=== PATIENT | male | born 1930 | race Caucasian/White ===

== ENCOUNTER → 2017-06-04 | Outpatient (CLI) | payer BC ==
[2016-04-16 17:31] VITALS: BP 173/106
[~2017-06-04] MED LIST: ACET-422 PO; ASPI325T8 PO; CETI10TA22 PO; GABA-586 PO; LISI-334 PO; MULT-246 PO; NIAC500T9 PO; OMEG1CAP43 PO; OMEP40CA5 PO; TRIA1CAP3 PO
--- NOTE | 2017-06-04 14:14 | CARD ---
APPROVED REPORT EXAM: Two-dimensional and M-mode echocardiogram with Doppler and color Doppler. Other Information Quality : Good INDICATION Cardiac Disease: CAD 2D DIMENSIONS RVDd3.2 (2.9-3.5cm)Left Atrium(2D)4.0 (1.6-4.0cm) IVSd1.1 (0.7-1.1cm)Aortic Root(2D)3.4 (2.0-3.7cm) LVDd4.5 (3.9-5.9cm)LVOT Diameter2.3 (1.8-2.4cm) PWd1.0 (0.7-1.1cm)LVDs4.1 (2.5-4.0cm) SV17.3 ml Aortic Valve AoV Peak Duarte.107.6cm/sAoV VTI17.5cm AO Peak GR.4.6mmHgLVOT Peak Duarte.93.1cm/s LVOT VTI 15.92cmAO Mean GR.2mmHg YUE (VMAX)3.05la8XNU (VTI)3.82cm2 Mitral Valve MV E Gmliycwk839.7cm/sMV DECEL USAP126rp MV A Eqaurxpi497.4cm/sMV QTI33bo E/A Ratio0.9MVA (PHT)6.85cm2 TDI E/Lateral E'18.4E/Medial E'26.3 Pulmonary Vein S1 Bvhwwnqh46.1cm/sD2 Agtotusg35.0cm/s LEFT VENTRICLE The left ventricle is normal size. There is normal left ventricular wall thickness. Noderate left dony tricular systolic dysfunction. The Ejection Fraction is 35-40%. Transmitral Doppler flow pattern is G rade I-abnormal relaxation pattern. RIGHT VENTRICLE The right ventricle is normal size. The right ventricular systolic function is normal. ATRIA The left atrium is mildly dilated. The right atrium size is normal. The interatrial septum is intact with no evidence for an atrial septal defect or patent foramen ovale as noted on 2-D or Doppler imagi ng. AORTIC VALVE The aortic valve is calcified but opens well. Doppler and Color Flow revealed trace aortic regurgitat ion. There is no significant aortic valvular stenosis. MITRAL VALVE The mitral valve is calcified but opens well. There is no evidence of mitral valve prolapse. There is no mitral valve stenosis. Doppler and Color-flow revealed mild mitral regurgitation. TRICUSPID VALVE The tricuspid valve is normal in structure and function. Doppler and Color Flow revealed trace tricus pid valve regurgitation. There is no tricuspid valve stenosis. PULMONIC VALVE The pulmonary valve is not well visualized but appears to be functioning normally by Doppler interrog ation. Doppler and Color Flow revealed mild pulmonic valvular regurgitation. There is no pulmonic soumya vular stenosis. GREAT VESSELS The aortic root is normal in size. The ascending aorta is normal in size. The IVC was not visualized. PERICARDIAL EFFUSION There is no evidence of significant pericardial effusion. Critical Notification Critical Value: No <Conclusion> Noderate left ventricular systolic dysfunction. The Ejection Fraction is 35-40%. The left atrium is mildly dilated. Tace aortic regurgitation. Mild mitral regurgitation. Trace tricuspid valve regurgitation. There is no evidence of significant pericardial effusion.
== END | disposition home or self-care (01) ==
LOC: ECHO 10:19
PROVIDERS: ATTEND Internal Medicine Cardiovascular Disease
DX: I08.3 Combined rheumatic disorders of mitral, aortic and tricuspid valves (principal); I25.10 Atherosclerotic heart disease of native coronary artery without angina pectoris
CPT/HCPCS: 93306

== ENCOUNTER 2017-09-26 13:49 | Emergency (ER) | payer BC ==
[2017-09-26 14:59] LABS: ADD MAN DIFF? NO
[2017-09-26 15:04] LABS: BASO % 1 % (0-3); EOS % 5 % (0-3); HEMATOCRIT 32.9 % (39.0-53.0); HEMOGLOBIN 11.3 g/dL (13.0-17.5); LYMPH # 0.7 x10^3/uL (1.0-4.8); LYMPH % 15 % (24-48); MEAN CORPUSCULAR HEMOGLOBIN 34 pg (25-35); MEAN CORPUSCULAR HGB CONC 34 g/dL (31-37); MEAN CORPUSCULAR VOLUME 98 fL (79-100); MONO % 9 % (0-9); NEUT % 71 % (31-73); PLATELET COUNT 187 x10^3/uL (140-400); RED BLOOD COUNT 3.37 x10^6/uL (4.30-5.70)
[2017-09-26 15:13] LABS: ANION GAP 8 (6-14); BLOOD UREA NITROGEN 17 mg/dL (8-26); BUN/CREATININE RATIO 24 (6-20); CALCIUM 8.9 mg/dL (8.5-10.1); CARBON DIOXIDE 28 mmol/L (21-32); CHLORIDE 100 mmol/L (98-107); CREATININE 0.7 mg/dL (0.7-1.3); GFR 107.2; GLUCOSE 108 mg/dL (70-99); POTASSIUM 4.1 mmol/L (3.5-5.1); SODIUM 136 mmol/L (136-145)
[2017-09-26 15:18] LABS: ALBUMIN/GLOBULIN RATIO 0.9 (1.0-1.7); ALK PHOS 128 U/L (46-116); ALT (SGPT) 13 U/L (16-63); AST (SGOT) 16 U/L (15-37); INR 1.1 (0.8-1.1); PARTIAL THROMBOPLASTIN TIME 35 SEC (24-38); PROTHROMBIN TIME PATIENT 13.6 SEC (11.7-14.0); TOTAL BILIRUBIN 0.3 mg/dL (0.2-1.0); TOTAL PROTEIN 6.5 g/dL (6.4-8.2)
[2017-09-26 15:25] LABS: NT-PRO BNP 409 pg/mL (0-449)
[2017-09-26] MEDS: HYDROcodone/APAP 5/325MG 1 TAB TABLET PO (17:53)
== END 2017-09-26 18:11 | disposition home or self-care (01) ==
LOC: ER 13:49
DX: R60.1 Generalized edema (principal); K21.9 Gastro-esophageal reflux disease without esophagitis; I10 Essential (primary) hypertension; I25.10 Atherosclerotic heart disease of native coronary artery without angina pectoris; I25.2 Old myocardial infarction; Z98.890 Other specified postprocedural states; Z95.1 Presence of aortocoronary bypass graft; Z90.49 Acquired absence of other specified parts of digestive tract; Z88.0 Allergy status to penicillin
CPT/HCPCS: 36415; 73552; 80053; 83880; 85025; 85610; 85730; 93971; 99285-25

== ENCOUNTER → 2017-10-21 | Outpatient (CLI) | payer BC ==
[2017-10-21 10:01] LABS: ADD MAN DIFF? NO
[2017-10-21 10:09] LABS: BASO % 0 % (0-3); EOS # 0.2 x10^3/uL (0.0-0.7); EOS % 6 % (0-3); HEMATOCRIT 34.1 % (39.0-53.0); HEMOGLOBIN 11.6 g/dL (13.0-17.5); LYMPH # 0.8 x10^3/uL (1.0-4.8); LYMPH % 19 % (24-48); MEAN CORPUSCULAR HEMOGLOBIN 34 pg (25-35); MEAN CORPUSCULAR HGB CONC 34 g/dL (31-37); MEAN CORPUSCULAR VOLUME 98 fL (79-100); MONO # 0.4 x10^3/uL (0.0-1.1); MONO % 9 % (0-9); NEUT # 2.8 x10^3uL (1.8-7.7); NEUT % 66 % (31-73); PLATELET COUNT 188 x10^3/uL (140-400); RED BLOOD COUNT 3.47 x10^6/uL (4.30-5.70); WHITE BLOOD COUNT 4.2 x10^3/uL (4.0-11.0)
[2017-10-21 10:21] LABS: PARTIAL THROMBOPLASTIN TIME 33 SEC (24-38)
[2017-10-21 10:22] LABS: ALBUMIN 3.2 g/dL (3.4-5.0); ANION GAP 8 (6-14); BLOOD UREA NITROGEN 29 mg/dL (8-26); CALCIUM 8.9 mg/dL (8.5-10.1); CARBON DIOXIDE 30 mmol/L (21-32); CHLORIDE 98 mmol/L (98-107); CREATININE 0.8 mg/dL (0.7-1.3); GFR 91.9; GLUCOSE 95 mg/dL (70-99); POTASSIUM 4.7 mmol/L (3.5-5.1); SODIUM 136 mmol/L (136-145)
[2017-10-21 11:13] LABS: SEDIMENTATION RATE 46 (0-15)
[2017-10-21 11:25] LABS: BILIRUBIN,URINE NEGATIVE (NEG); CLARITY,URINE CLEAR; COLOR,URINE YELLOW; GLUCOSE,URINE NEGATIVE (NEG); NITRITE,URINE NEGATIVE (NEG); PH,URINE 7.5; PROTEIN,URINE NEGATIVE (NEG-TRACE)
[2017-10-21 11:39] LABS: RBC,URINE 0 /HPF (0-2)
[2017-10-21 11:40] LABS: AMORPHOUS SEDIMENT,UR PRESENT /HPF; BACTERIA,URINE MODERATE /HPF (0-FEW); SQUAMOUS EPITHELIAL CELL,UR FEW /LPF
[2017-10-21 17:13] LABS: MRSA BY PCR Negative (Negative)
== END | disposition home or self-care (01) ==
LOC: SURGPAT 14:16
DX: Z01.818 Encounter for other preprocedural examination (principal); I10 Essential (primary) hypertension; I70.0 Atherosclerosis of aorta
CPT/HCPCS: 36415; 71046; 80048; 81001; 82040; 85025; 85610; 85651; 85730; 87086; 87641

== ENCOUNTER 2017-11-04 05:49 | Inpatient (IN) | payer BC ==
[2017-11-04] MEDS: IV RINGERS,LACTATED 1000ML 1,000 ML IV (06:56)
[2017-11-04] MEDS ORDERED: fentaNYL PF VIAL 100 MCG/2 ML VIAL IV ×4 (07:00→07:15)
[2017-11-04] MEDS ORDERED: LIDOCAINE 1% PF 2 ML VIAL. ID (07:00)
[2017-11-04] MEDS ORDERED: MORPHINE SULFATE 2 MG/ML DISP.SYRIN. IV ×2 (07:00→07:15)
[2017-11-04] MEDS ORDERED: PROCHLORPERAZINE 10 MG/2 ML VIAL. IV ×2 (07:00→07:15)
[2017-11-04] MEDS ORDERED: HYDROmorphone 2 MG/ML VIAL IV (07:00)
[2017-11-04] MEDS ORDERED: ONDANSETRON PF 4 MG/2 ML VIAL. IV (07:00)
[2017-11-04] MEDS ORDERED: ONDANSETRON PF 4 MG/2 ML VIAL. (07:01)
[2017-11-04] MEDS ORDERED: FAMOTIDINE 20 MG/2 ML VIAL (07:01)
[2017-11-04] MEDS ORDERED: LIDOCAINE 1% PF 5 ML VIAL. (07:01)
[2017-11-04] MEDS ORDERED: PROPOFOL 20 ML IV (07:01)
[2017-11-04] MEDS ORDERED: DEXAMETHASONE SOD PHOS 20 MG/5 ML VIAL. (07:01)
[2017-11-04] MEDS ORDERED: ACETAMINOPHEN 500 MG TABLET PO (07:02)
[2017-11-04] MEDS ORDERED: MELOXICAM 7.5 MG TABLET PO (07:03)
[2017-11-04] MEDS ORDERED: ROCURONIUM 50 MG/5 ML VIAL. (07:04)
[2017-11-04] MEDS ORDERED: fentaNYL PF VIAL 100 MCG/2 ML VIAL (07:04)
[2017-11-04] MEDS: VANCOMYCIN 1GM IVPB FOR OMNI 250 ML IV (07:05)
[2017-11-04 07:15] LABS: PARTIAL THROMBOPLASTIN TIME 32 SEC (24-38)
[2017-11-04] MEDS ORDERED: oxyCODONE/APAP 5/325 1 TAB TABLET PO (07:15)
[2017-11-04] MEDS ORDERED: HYDROcodone/APAP 10/325 1 TAB TABLET PO (07:15)
[2017-11-04] MEDS ORDERED: MORPHINE SULFATE 4 MG/ML DISP.SYRIN. IV ×2 (07:15)
[2017-11-04] MEDS ORDERED: MORPHINE SULFATE 10 MG/ML VIAL. IV (07:15)
[2017-11-04] MEDS ORDERED: 0.9 % SODIUM CHLORIDE 10 ML DISP.SYRIN. IV (07:15)
[2017-11-04] MEDS ORDERED: diphenhydrAMINE 50 MG/ML VIAL IV (07:15)
[2017-11-04] MEDS ORDERED: DEXTROSE 50% 25 GM / 50ML DISP.SYRIN. IV (07:15)
[2017-11-04] MEDS ORDERED: PROCHLORPERAZINE 5 MG TABLET. PO (07:15)
[2017-11-04] MEDS ORDERED: METOCLOPRAMIDE HCL 10 MG/2 ML VIAL. IV (07:15)
[2017-11-04] MEDS ORDERED: traMADol 50 MG TABLET PO (07:15)
[2017-11-04] MEDS ORDERED: CALCIUM CARBONATE 500 MG TAB.CHEW PO (07:15)
[2017-11-04] MEDS ORDERED: ACETAMINOPHEN 325 MG TABLET. PO (07:15)
[2017-11-04] MEDS ORDERED: oxyCODONE/APAP 7.5/325 1 TAB TABLET PO (07:15)
[2017-11-04] MEDS: MELOXICAM 7.5 MG TABLET PO (07:35)
[2017-11-04] MEDS: ACETAMINOPHEN 500 MG TABLET PO (07:35)
[2017-11-04] MEDS ORDERED: PHENYLEPHRINE in 0.9% NACL PF 1 MG/10 ML SYRINGE. IV (07:53)
[2017-11-04] MEDS: TRANEXAMIC ACID 1,000 MG in IV NORMAL SALINE 50ML 50 ML INJ ×2 (07:54→10:28)
[2017-11-04] MEDS: MORPHINE SULFATE 5 MG, KETOROLAC 30 MG, ROPIVacaine 0.5% PF 60 ML, EPINEPHrine 0.5 MG i... INT ART (08:01)
[2017-11-04] MEDS ORDERED: ePHEDrine PF IN SALINE 50 MG/5 ML DISP.SYRIN IV (08:14)
[2017-11-04] MEDS ORDERED: ROCURONIUM 100 MG/10 ML VIAL. (08:49)
[2017-11-04] MEDS ORDERED: GLYCOPYRROLATE 1 MG/5 ML VIAL. (08:50)
[2017-11-04] MEDS ORDERED: NEOSTIGMINE METHYLSULFATE 5 MG/5 ML SYRINGE. (08:50)
[2017-11-04] MEDS ORDERED: 0.9 % SODIUM CHLORIDE 50 ML VIAL. IJ (08:58)
[2017-11-04] MEDS ORDERED: VASOPRESSIN 20 UNIT/ML VIAL. (08:58)
[2017-11-04] MEDS ORDERED: ALBUMIN HUMAN 5% 500 ML IV (09:22)
[2017-11-04 09:59] LABS: HEMOGLOBIN 9.2 g/dL (13.0-17.5)
[2017-11-04 09:59] LABS: HEMATOCRIT 27.3 % (39.0-53.0)
[2017-11-04] MEDS ORDERED: SEVOFLURANE > 120 MINUTES. IH (10:41)
[2017-11-04] MEDS: IV DEXTROSE 5 %-0.45 % NACL 1,000 ML IV ×2 (12:30→22:00)
[2017-11-04] MEDS: WARFARIN 7.5 MG TABLET. PO (16:17)
[2017-11-04] MEDS: VANCOMYCIN 1 GM in IV DEXTROSE 5% 250 ML IV (17:55)
[2017-11-04 18:05] LABS: HEMATOCRIT 24.5 % (39.0-53.0); HEMOGLOBIN 8.5 g/dL (13.0-17.5); MEAN CORPUSCULAR HEMOGLOBIN 33 pg (25-35); MEAN CORPUSCULAR HGB CONC 35 g/dL (31-37); MEAN CORPUSCULAR VOLUME 96 fL (79-100); PLATELET COUNT 129 x10^3/uL (140-400); RED BLOOD COUNT 2.55 x10^6/uL (4.30-5.70); RED CELL DISTRIBUTION WIDTH 14.1 % (11.5-14.5); WHITE BLOOD COUNT 6.9 x10^3/uL (4.0-11.0)
[2017-11-04] MEDS: GABAPENTIN 300 MG CAPSULE. PO (20:56)
[2017-11-04] MEDS: CELECOXIB 200 MG CAPSULE. PO (20:56)
[2017-11-04] MEDS: LISINOPRIL 20 MG TABLET PO (20:58)
[2017-11-04] MEDS: ZOLPIDEM 5 MG TABLET. PO (22:37)
[2017-11-04] MEDS: HYDROcodone/APAP 7.5/325MG 1 TAB TABLET PO (22:37)
[2017-11-05 05:01] LABS: HEMATOCRIT 24.1 % (39.0-53.0); HEMOGLOBIN 8.4 g/dL (13.0-17.5); MEAN CORPUSCULAR HGB CONC 35 g/dL (31-37)
[2017-11-05 05:09] LABS: INR 1.2 (0.8-1.1); PROTHROMBIN TIME PATIENT 14.7 SEC (11.7-14.0)
[2017-11-05] MEDS ORDERED: MAGNESIUM HYDROXIDE 2,400 MG/30 ML ORAL.SUSP. PO (06:00)
[2017-11-05] MEDS: PANTOPRAZOLE 40 MG TABLET.DR. PO (06:29)
[2017-11-05] MEDS: VANCOMYCIN 1 GM in IV DEXTROSE 5% 250 ML IV (06:30)
[2017-11-05] MEDS: HYDROcodone/APAP 7.5/325MG 1 TAB TABLET PO ×3 (06:31→20:43)
[2017-11-05] MEDS: CETIRIZINE HCL 10 MG TABLET. PO (07:40)
[2017-11-05] MEDS: MULTIVITAMIN with MINERAL TABLET. PO (07:40)
[2017-11-05] MEDS: SENNOSIDES/DOCUSATE 8.6/50MG TABLET. PO (07:40)
[2017-11-05] MEDS: FERROUS SULFATE 325 MG TABLET. PO ×2 (07:40→16:17)
[2017-11-05] MEDS: CITALOPRAM 10 MG TABLET. PO (07:40)
[2017-11-05] MEDS: POLYETHYLENE GLYCOL 3350 17 GM PACKET. PO (07:40)
[2017-11-05] MEDS: CELECOXIB 200 MG CAPSULE. PO ×2 (07:40→20:41)
[2017-11-05] MEDS: TRIAMTERENE/HCTZ 37.5/25MG TABLET. PO (07:43)
[2017-11-05] MEDS ORDERED: BISACODYL 10 MG SUPP.RECT. PR (16:00)
[2017-11-05] MEDS: WARFARIN 5 MG TABLET. PO (16:17)
[2017-11-05] MEDS: GABAPENTIN 300 MG CAPSULE. PO (20:41)
[2017-11-05] MEDS: LISINOPRIL 20 MG TABLET PO (20:43)
[2017-11-06] MEDS: HYDROcodone/APAP 7.5/325MG 1 TAB TABLET PO ×2 (03:55→08:39)
[2017-11-06 05:42] LABS: HEMATOCRIT 22.5 % (39.0-53.0); HEMOGLOBIN 7.7 g/dL (13.0-17.5); MEAN CORPUSCULAR HGB CONC 34 g/dL (31-37)
[2017-11-06 06:01] LABS: INR 1.5 (0.8-1.1)
[2017-11-06] MEDS: PANTOPRAZOLE 40 MG TABLET.DR. PO (06:23)
[2017-11-06] MEDS: MULTIVITAMIN with MINERAL TABLET. PO (08:31)
[2017-11-06] MEDS: CITALOPRAM 10 MG TABLET. PO (08:31)
[2017-11-06] MEDS: CELECOXIB 200 MG CAPSULE. PO ×2 (08:31→21:35)
[2017-11-06] MEDS: SENNOSIDES/DOCUSATE 8.6/50MG TABLET. PO (08:31)
[2017-11-06] MEDS: FERROUS SULFATE 325 MG TABLET. PO ×2 (08:31→16:54)
[2017-11-06] MEDS: CETIRIZINE HCL 10 MG TABLET. PO (08:31)
[2017-11-06] MEDS: POLYETHYLENE GLYCOL 3350 17 GM PACKET. PO (08:32)
[2017-11-06] MEDS: TRIAMTERENE/HCTZ 37.5/25MG TABLET. PO (08:34)
[2017-11-06] MEDS: traMADol 50 MG TABLET PO ×2 (13:14→16:54)
[2017-11-06 15:13] LABS: IMMEDIATE SPIN CROSSMATCH 1 3
[2017-11-06] MEDS: WARFARIN 3 MG TABLET. PO (16:54)
[2017-11-06] MEDS: LISINOPRIL 20 MG TABLET PO (21:00)
[2017-11-06] MEDS: GABAPENTIN 300 MG CAPSULE. PO (21:35)
[2017-11-06] MEDS: ZOLPIDEM 5 MG TABLET. PO (22:15)
[2017-11-07 05:32] LABS: HEMOGLOBIN 8.4 g/dL (13.0-17.5); MEAN CORPUSCULAR HGB CONC 34 g/dL (31-37)
[2017-11-07 05:39] LABS: INR 1.4 (0.8-1.1); PROTHROMBIN TIME PATIENT 16.4 SEC (11.7-14.0)
[2017-11-07] MEDS: PANTOPRAZOLE 40 MG TABLET.DR. PO (07:01)
[2017-11-07] MEDS: POLYETHYLENE GLYCOL 3350 17 GM PACKET. PO (08:10)
[2017-11-07] MEDS: MULTIVITAMIN with MINERAL TABLET. PO (08:11)
[2017-11-07] MEDS: CITALOPRAM 10 MG TABLET. PO (08:12)
[2017-11-07] MEDS: CELECOXIB 200 MG CAPSULE. PO (08:12)
[2017-11-07] MEDS: SENNOSIDES/DOCUSATE 8.6/50MG TABLET. PO (08:12)
[2017-11-07] MEDS: FERROUS SULFATE 325 MG TABLET. PO (08:12)
[2017-11-07] MEDS: CETIRIZINE HCL 10 MG TABLET. PO (08:13)
[2017-11-07] MEDS: TRIAMTERENE/HCTZ 37.5/25MG TABLET. PO (08:16)
[2017-11-07] MEDS: HYDROcodone/APAP 7.5/325MG 1 TAB TABLET PO ×2 (09:27→14:44)
[2017-11-07] MEDS: WARFARIN 4 MG TABLET. PO (12:51)
== END 2017-11-07 16:00 | DRG 470 ==
LOC: OPSVCIP 05:49 → 4 SOUTHWST 12:18
PROVIDERS: Neurological Surgery
PROC: 0SRB0JZ Replacement of Left Hip Joint with Synthetic Substitute, Open Approach (ICD-10-PCS; principal; 2017-11-04 07:30)
PROC: 30233N1 Transfusion of Nonautologous Red Blood Cells into Peripheral Vein, Percutaneous Approach (ICD-10-PCS; 2017-11-04 07:30)
DX: M16.12 Unilateral primary osteoarthritis, left hip (principal)
CPT/HCPCS: 36415; 72170; 85014; 85018; 85027; 85610; 85730; 86850; 86900; 86901; 86920; 88304; 88311; 97116-GP; 97150-GO; 97150-GP; 97162-GP; 97166-GO; 97530-GP; 97535-GO; J0171; J1100; J1885; J2270; J2370; J2405; J2704; J2710; J2795; J3010; J3370; J3490; J7030; J7120; P9016; P9045; S0028

== ENCOUNTER → 2018-07-31 | Outpatient (CLI) | payer BC ==
[2017-11-07 14:45] VITALS: BP 108/57
[~2018-07-31] MED LIST changes: +CEPH-263 PO; +ESCITALOPRAM OXA5 MG PO; +HYDR-971 PO; +LACT1CAP19 PO; +POLY17PO3 PO; +WARF4TAB64 PO; +depression med
--- NOTE | 2018-07-31 13:00 | CARD ---
MR#: [id number] Date of Study: 07/31/2018 Ordering Physician: ROME HASKINS, Referring Physician: ROME HASKINS Tech: Nannette Quiñonez RDCS APPROVED REPORT EXAM: Two-dimensional and M-mode echocardiogram with Doppler and color Doppler. Other Information Quality : Good Technically limited study due to body habitus. INDICATION Cardiac Disease: CAD 2D DIMENSIONS RVDd2.4 (2.9-3.5cm)Left Atrium(2D)3.9 (1.6-4.0cm) IVSd1.1 (0.7-1.1cm)Aortic Root(2D)3.4 (2.0-3.7cm) LVDd5.6 (3.9-5.9cm)LVOT Diameter2.2 (1.8-2.4cm) PWd1.1 (0.7-1.1cm)LVDs4.5 (2.5-4.0cm) FS (%) 19.5 %SV61.5 ml LVEF(%)39.5 (>50%) Aortic Valve AoV Peak Duarte.112.8cm/sAoV VTI19.1cm AO Peak GR.5.1mmHgLVOT Peak Duarte.114.2cm/s AO Mean GR.3mmHgAVA (VMAX)3.83cm2 YUE (VTI)3.90cm2 Mitral Valve MV E Oasbojtp91.0cm/sMV DECEL OEHU927po MV A Mcoarlqo659.1cm/sE/A Ratio0.6 Tricuspid Valve TR P. Fnotqwql211bd/sRAP ABWKYKUF6aaYf TR Peak Gr.08bsEiKRYE75evVk Pulmonary Vein S1 Jekxitfu34.1cm/sD2 Nlwdfqyz77.3cm/s LEFT VENTRICLE The left ventricle is normal size. There is normal left ventricular wall thickness. Left ventricle sy stolic function is mild impaired. EF 45-50% Septal motion consistent with conduction abnormality. The re is mild global hypokinesis of the left ventricle. Transmitral Doppler flow pattern is Grade I-abno rmal relaxation pattern. RIGHT VENTRICLE The right ventricle is normal size. The right ventricular systolic function is normal. ATRIA The left atrium size is normal. The right atrium size is normal. The interatrial septum is intact wit h no evidence for an atrial septal defect or patent foramen ovale as noted on 2-D or Doppler imaging. AORTIC VALVE The aortic valve is calcified but opens well. Doppler and Color Flow revealed no significant aortic r egurgitation. There is no significant aortic valvular stenosis. MITRAL VALVE The mitral valve is calcified but opens well. There is no evidence of mitral valve prolapse. There is no mitral valve stenosis. Doppler and Color-flow revealed mild mitral regurgitation. TRICUSPID VALVE The tricuspid valve is normal in structure and function. Doppler and Color Flow revealed trace tricus pid regurgitation. The PA pressure was estimated at 35 mmHg. There is no tricuspid valve stenosis. PULMONIC VALVE The pulmonic valve is not well visualized. Doppler and Color Flow revealed mild pulmonic valvular reg urgitation. There is no pulmonic valvular stenosis. GREAT VESSELS The aortic root is normal in size. The ascending aorta is mildly dilated at 3.5 cm. The IVC was not v isualized. PERICARDIAL EFFUSION There is no evidence of significant pericardial effusion. Critical Notification Critical Value: No <Conclusion> Left ventricle systolic function is mild impaired. EF 45-50% Septal motion consistent with conduction abnormality. There is mild global hypokinesis of the left ve ntricle. Doppler and Color Flow revealed trace tricuspid regurgitation. The PA pressure was estimated at 35 mm Hg. The ascending aorta is mildly dilated at 3.5 cm. Signed by : Donald Khanna, Electronically Approved : 07/31/2018 12:59:39
== END | disposition home or self-care (01) ==
LOC: ECHO 10:46
PROVIDERS: ATTEND Internal Medicine Cardiovascular Disease
DX: I25.10 Atherosclerotic heart disease of native coronary artery without angina pectoris (principal); Z88.0 Allergy status to penicillin; Z79.899 Other long term (current) drug therapy
CPT/HCPCS: 93306

== ENCOUNTER → 2018-08-20 | Outpatient (CLI) | payer BC ==
[2017-11-07 14:45] VITALS: BP 108/57
[~2018-08-20] MED LIST changes: +REGADENOSON 0.4 MG/5 ML DISP.SYRIN. IV ONE
--- NOTE | 2018-08-20 13:10 | RAD ---
MR#: [id number] Date of Study: 08/20/2018 Ordering Physician: ROME CORRIGAN Referring Physician: DREAD STERN Tech: RT Rafiq (R) (N) APPROVED REPORT Test Type: Pharmacological Stress Nurse/Tech: Beata Lepe RN Test Indications: CAD Cardiac History: CABG, CHF Medications: See Electronic Medical Record Medical History: See Electronic Medical Record Resting ECG: SR, BBB Resting Heart Rate: 70 bpm Resting Blood Pressure: 153/80mmHg Pretest Chest Pain: None Nurse/Tech Notes Lungs CTA, S1S2 Consent: The procedure was explained to the patient in lay terms. Informed consent was witnessed. Fer eout was entered into [employer]. History and Stress Test performed by Beata Lepe RN Pharm. Details Pharmacologic stress testing was performed using 0.4mg per 5ml of regadenoson given intravenously ove r 7-10 seconds. Stress Symptoms No chest pain or symptoms. POST EXERCISE Reason for Termination: Infusion complete Max HR: 91 bpm Max Blood Pressure: 154/74mmHg Blood Pressure response to exercise: Normal blood pressure response during stress. Heart Rate response to exercise: normal response Chest Pain: No. Arrhythmia: No. ST Change: No. INTERPRETATION Stress EKG Conclusion: Baseline EKG showed sinus rhythm with LBBB. Non diagnostic changes at peak str ess. No arrhythmias. Imaging Protocol IMAGE PROTOCOL: Rest Tc-99m/stress Tc-99m 1 day Rest: Stress: Viability: Radiopharm.Tc99m OclacndkmFg04p Sestamibi Qsgb68iNz 33mCi Duration 13min. 13min. Img Date 08/20/2018 08/20/2018 Inj-Img Bizc30tjc. 60min. Rest Admin Site:IV - Left AntecubitalAdministrator:RT Rafiq (R)(N) Stress Admin Site: IV - Left AntecubitalAdministrator: RT Rafiq (R)(N) STRESS DATA End Diast. Vol.174.0mlLVEDV index BSA84.0ml End Syst. Vol.91.0mlLVESV index BSA44.0ml Myocardial Qjea450.0gEject. Cnlhmqri55.0% Stress Scores Regional WT0.00Summed WT23.00 Regional WM0.00Summed WM24.00 LV Perfusion Scintigraphic images did not show any significant fixed or reversible defects. Wall Motion Abnormal septal wall motion with ejection fraction calculated at 48%. LV Perf. Quant 17 Seg. SSS5.00 17 Seg. SRS15.00 17 Seg. SDS0.00 Stress Defect Extent (% LAD)1.30Rest Defect Extent (% LAD)43.10Rev. Defect Extent (% LAD)0.00 Stress Defect Extent (% LCX) 12.50Rest Defect Extent (% LCX)17.50Rev. Defect Extent (% LCX)0.00 Stress Defect Extent (% RCA)2.20Rest Defect Extent (% RCA)37.80Rev. Defect Extent (% RCA)0.00 Stress Defect Extent (% EJNNIFER)7.40Rest Defect Extent (% JENNIFER)36.70Rev. Defect Extent (% JENNIFER)0.00 Conclusion 1. Regadenoson cardioisotope stress test did not show any evidence of ischemia or infarct. 2. Abnormal septal wall motion with ejection fraction calculated at 48%. 3. Low risk for cardiac events. Signed by : Rome Corrigan, Electronically Approved : 08/20/2018 13:09:37
== END | disposition home or self-care (01) ==
LOC: NM 08:43
PROVIDERS: ATTEND Internal Medicine Cardiovascular Disease
DX: I25.10 Atherosclerotic heart disease of native coronary artery without angina pectoris (principal); Z95.1 Presence of aortocoronary bypass graft
CPT/HCPCS: 78452; 93017; 96374; 96375; 96376; A9500; J2785

== ENCOUNTER → 2019-08-13 | Outpatient (CLI) | payer BC ==
[2017-11-07 14:45] VITALS: BP 108/57
[~2019-08-13] MED LIST changes: -GABA-586 PO; +GABA300C18 PO; +HYDR-3164 PO; -HYDR-971 PO; +OMEP40CA45 PO; -OMEP40CA5 PO; +POLY17PO28 PO; -POLY17PO3 PO; -REGADENOSON 0.4 MG/5 ML DISP.SYRIN. IV ONE
--- NOTE | 2019-08-13 10:02 | CARD ---
MR#: [id number] Date of Study: 08/13/2019 Ordering Physician: ROME CORRIGAN, Referring Physician: Gold STERN: Judith Griffiths APPROVED REPORT EXAM: Two-dimensional and M-mode echocardiogram with Doppler and color Doppler. Other Information Quality : AverageHR: 68bpm INDICATION CAD 2D DIMENSIONS RVDd2.5 (2.9-3.5cm)Left Atrium(2D)2.9 (1.6-4.0cm) IVSd1.6 (0.7-1.1cm)Aortic Root(2D)2.7 (2.0-3.7cm) LVDd4.8 (3.9-5.9cm)LVOT Diameter2.3 (1.8-2.4cm) PWd1.2 (0.7-1.1cm)LVDs3.3 (2.5-4.0cm) FS (%) 30.6 %SV61.6 ml LVEF(%)58.0 (>50%) Aortic Valve AoV Peak Duarte.121.5cm/sAoV VTI24.8cm AO Peak GR.5.9mmHgLVOT Peak Duarte.98.6cm/s AO Mean GR.3mmHgAVA (VMAX)3.46cm2 Mitral Valve MV E Otnyrecr95.3cm/sMV E Peak Gr.5mmHg MV DECEL VFCG483ceTH A Jdlouijv790.2cm/s MV E Mean Gr.2mmHgE/A Ratio0.5 Pulmonary Valve PV Peak Duioitys51.4cm/s Tricuspid Valve TR P. Puynhsfn446uo/sRAP YOVAXSVI6brQk TR Peak Gr.10dqIpWWOH24jdIv Pulmonary Vein S1 Emnushfm38.0cm/sD2 Pxnvvjmk67.6cm/s LEFT VENTRICLE The left ventricle is normal size. There is mild concentric left ventricular hypertrophy. The left ve ntricular systolic function is mildly impaired. The Ejection Fraction is 45%. Septal wall motion cons istent with conduction abnormality. Transmitral Doppler flow pattern is Grade I-abnormal relaxation p attern. RIGHT VENTRICLE The right ventricle is normal size. The right ventricular systolic function is normal. ATRIA The left atrium size is normal. The right atrium size is normal. The interatrial septum is intact wit h no evidence for an atrial septal defect or patent foramen ovale as noted on 2-D or Doppler imaging. AORTIC VALVE The aortic valve is calcified but opens well. Doppler and Color Flow revealed no significant aortic r egurgitation. There is no significant aortic valvular stenosis. MITRAL VALVE The mitral valve is thickened but opens well. There is no evidence of mitral valve prolapse. There is no mitral valve stenosis. Doppler and Color-flow revealed mild mitral regurgitation. TRICUSPID VALVE The tricuspid valve is normal in structure and function. Doppler and Color Flow revealed mild tricusp id regurgitation with an estimated PAP of 20 mmHg. There is no tricuspid valve stenosis. PULMONIC VALVE The pulmonary valve is normal in structure and function. Doppler and Color Flow revealed no pulmonic valvular regurgitation. GREAT VESSELS The aortic root is normal in size. The ascending aorta is normal in size. The IVC was not visualized. PERICARDIAL EFFUSION There is no pleural effusion. There is no evidence of significant pericardial effusion. Critical Notification Critical Value: No <Conclusion> The left ventricular systolic function is mildly impaired. The Ejection Fraction is 45%. Septal wall motion consistent with conduction abnormality. Transmitral Doppler flow pattern is Grade I-abnormal relaxation pattern. Mild mitral regurgitation. Mild tricuspid regurgitation with an estimated PAP of 20 mmHg. There is no evidence of significant pericardial effusion. Signed by : Rome Corrigan, Electronically Approved : 08/13/2019 10:02:22
== END | disposition home or self-care (01) ==
LOC: ECHO 08:43
PROVIDERS: ATTEND Internal Medicine Cardiovascular Disease
DX: I08.3 Combined rheumatic disorders of mitral, aortic and tricuspid valves (principal); I11.9 Hypertensive heart disease without heart failure; I25.10 Atherosclerotic heart disease of native coronary artery without angina pectoris
CPT/HCPCS: 93306

== ENCOUNTER 2020-05-29 10:59 | Inpatient (IN) | payer BC ==
[~2020-05-29] VITALS: Ht 167.6 cm; Wt 106.4 kg
[2020-05-29] VITALS (10 sets, daily range): BP systolic 89–141; BP diastolic 57–68
[~2020-05-29 10:59] MED LIST changes: -CETI10TA22 PO; +CETI10TA74 PO
--- NOTE | 2020-05-29 11:12 | PHYS DOC ---
Past Medical History Past Medical History: CAD, GERD, Hypertension, DC Past Surgical History: Appendectomy, Coronary Bypass Surgery, Other Additional Past Surgical Histo: hernia repair Smoking Status: Never Smoker Alcohol Use: None Drug Use: None General Adult EDM: Chief Complaint: MECHANICAL FALL HPI: HPI: Patient is a 89 year old male who missed a step and fell and injured his right hip just prior to arrival patient has severe right hip pain and limited range of motion. Pain is described as a throbbing discomfort that radiates down his leg. Pain is worse with range of motion and palpation. Patient denied hitting his head did not have loss of consciousness. Patient denies any other injuries. Review of Systems: Review of Systems: Constitutional: Denies fever or chills. [] Eyes: Denies change in visual acuity. [] HENT: Denies nasal congestion or sore throat. [] Respiratory: Denies cough or shortness of breath. [] Cardiovascular: Denies chest pain or edema. [] GI: Denies abdominal pain, nausea, vomiting, bloody stools or diarrhea. [] : Denies dysuria. [] Musculoskeletal: Denies back pain but has right hip pain Integument: Denies rash. [] Neurologic: Denies headache, focal weakness or sensory changes. [] Endocrine: Denies polyuria or polydipsia. [] Lymphatic: Denies swollen glands. [] Psychiatric: Denies depression or anxiety. [] Heart Score: Risk Factors: Risk Factors: DM, Current or recent (<one month) smoker, HTN, HLP, family his tory of CAD, obesity. Risk Scores: Score 0 - 3: 2.5% MACE over next 6 weeks - Discharge Home Score 4 - 6: 20.3% MACE over next 6 weeks - Admit for Clinical Observation Score 7 - 10: 72.7% MACE over next 6 weeks - Early Invasive Strategies Current Medications: Current Medications Medications (Trade) Dose Ordered Sig/Ginny Start Time Stop Time Status Last Admin Dose Admin Morphine Sulfate (Morphine Sulfate) 2 mg 1X ONCE 05/29/20 11:30 05/29/20 11:31 Allergies: Allergies: Allergies Coded Allergies Type Severity Reaction Last Updated Verified Penicillins Allergy Intermediate 11/04/17 Yes Physical Exam: PE: Constitutional: Well developed, well nourished, no acute distress, non-toxic appearance. [] HENT: Normocephalic, atraumatic, bilateral external ears normal, no trismus, nose normal. [] Eyes: PERRLA, EOMI, conjunctiva normal, no discharge. [] Neck: Normal range of motion, no tenderness, supple, no stridor. [] Cardiovascular:Heart rate regular rhythm, peripheral pulses intact, cap refill brisk Lungs & Thorax: Bilateral breath sounds clear, no respiratory distress Abdomen: Bowel sounds normal, soft, no tenderness, no masses, no pulsatile masses. [] Skin: Warm, dry, no erythema, no rash. [] Back: No tenderness, no CVA tenderness. [] Extremities: Tenderness to the right hip with external rotation Neurologic: Alert and oriented X 3, normal motor function, normal sensory function, no focal deficits noted. [] Psychologic: Affect normal, judgement normal, mood normal. [] Current Patient Data: Labs: Laboratory Tests Test 05/29/20 11:12 05/29/20 11:35 White Blood Count 5.0 x10^3/uL Red Blood Count 3.88 x10^6/uL Hemoglobin 13.1 g/dL Hematocrit 38.0 % Mean Corpuscular Volume 98 fL Mean Corpuscular Hemoglobin 34 pg Mean Corpuscular Hemoglobin Concent 35 g/dL Red Cell Distribution Width 12.8 % Platelet Count 143 x10^3/uL Neutrophils (%) (Auto) 73 % Lymphocytes (%) (Auto) 17 % Monocytes (%) (Auto) 7 % Eosinophils (%) (Auto) 3 % Basophils (%) (Auto) 0 % Neutrophils # (Auto) 3.7 x10^3/uL Lymphocytes # (Auto) 0.8 x10^3/uL Monocytes # (Auto) 0.4 x10^3/uL Eosinophils # (Auto) 0.2 x10^3/uL Basophils # (Auto) 0.0 x10^3/uL Prothrombin Time 14.3 SEC Prothromb Time International Ratio 1.2 Activated Partial Thromboplast Time 31 SEC Sodium Level 135 mmol/L Potassium Level 3.8 mmol/L Chloride Level 99 mmol/L Carbon Dioxide Level 27 mmol/L Anion Gap 9 Blood Urea Nitrogen 17 mg/dL Creatinine 0.9 mg/dL Estimated GFR (Cockcroft-Gault) 79.6 BUN/Creatinine Ratio 19 Glucose Level 129 mg/dL Calcium Level 8.5 mg/dL Total Bilirubin 0.4 mg/dL Aspartate Amino Transf (AST/SGOT) 15 U/L Alanine Aminotransferase (ALT/SGPT) 18 U/L Alkaline Phosphatase 80 U/L Total Protein 6.4 g/dL Albumin 3.1 g/dL Albumin/Globulin Ratio 0.9 SARS-CoV-2 Antigen (Rapid) Negative Current Medications Medications (Trade) Dose Ordered Sig/Ginny Route PRN Reason Start Time Stop Time Status Last Admin Dose Admin Morphine Sulfate (Morphine Sulfate) 2 mg 1X ONCE IV 05/29/20 11:30 05/29/20 11:31 DC 05/29/20 11:31 Vital Signs: Vital Signs Date Time Temp Pulse Resp B/P (MAP) Pulse Ox O2 Delivery O2 Flow Rate FiO2 05/29/20 10:59 98.3 70 18 140/65 (90) 95 Room Air 98.3 EKG: EKG: [] EKG interpreted by me normal sinus rhythm left axis deviation idioventricular block, nonspecific ST changes, rate of 71 Radiology/Procedures: Radiology/Procedures: [][facility] [address] [place] [address] IMAGING REPORT Signed PATIENT: YANIQUE FOX ACCOUNT: [id number] : 1930 LOCATION: ER AGE: 89 SEX: M EXAM STATUS: PRE ER ORD. PHYSICIAN: MARTIN RAMIRES MD REASON: fall, right hip pain PROCEDURE: HIP RIGHT 2V WITH PELVIS AP view of the pelvis and two-view study right hip Clinical indications: Fall. Right hip pain. FINDINGS: A basicervical right femoral neck fracture is seen. However, in the lateral view there is a fracture line seen extending through the greater trochanter with mild inferior displacement of the greater trochanteric fracture fragment. In addition, a small chip fracture of the upper aspect of the lesser trochanter is seen. Therefore, this is consistent with an intertrochanteric fracture. There is a mild resultant varus deformity. No lytic process is seen. 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 No acute fracture of the pelvic bones is seen. No diastases of the symphysis pubis or either SI joint is seen. No lytic process is evident. IMPRESSION: Impacted intertrochanteric fracture of the proximal right femur. Electronically signed by: Baldo Jorge MD (05/29/2020 11:37 AM) [id number] DICTATED and SIGNED BY: BALDO JORGE MD DATE: 05/29/20 113 [facility] [address] [place] [address] IMAGING REPORT Signed PATIENT: YANIQUE FOX ACCOUNT: [id number] : 1930 LOCATION: ER AGE: 89 SEX: M EXAM STATUS: PRE ER ORD. PHYSICIAN: MARTIN RAMIRES MD REASON: fall, right hip pain PROCEDURE: PORTABLE CHEST 1V EXAM: CHEST ONE VIEW. HISTORY: Fall, pain. COMPARISON: 10/21/2017. FINDINGS: A frontal view of the chest is obtained. There are changes of coronary artery bypass grafting. There are no confluent infiltrates. There is no pneumothorax or pleural effusion. The heart is not enlarged. A chronic large retrocardiac opacity is consistent with a large hiatal hernia. There are atherosclerotic calcifications of the aorta. IMPRESSION: 1. Correlate for a large hiatal hernia. Electronically signed by: Donna Garvey MD (05/29/2020 11:36 AM) [id number] DICTATED and SIGNED BY: LILY GARVEY MD DATE: 05/29/201135 Course & Med Decision Making: Course & Med Decision Making Pertinent Labs and Imaging studies reviewed. 11:[address] Gomez will come see the patient. Patient with mechanical fall and right hip fracture. Patient admitted to Dr. ANTONIO with Ortho consult Dragon Disclaimer: Randolph Disclaimer: This electronic medical record was generated, in whole or in part, using a voice recognition dictation system. Departure Departure Impression: Primary Impression: Intertrochanteric fracture of right hip Disposition: ADMITTED INPATIENT Admitting Physician: FLORENCE (catherine) Condition: STABLE (catherine) Referrals: ADELAIDE COLEY MD (PCP) Justicifation of Admission Dx: Justifications for Admission: Justification of Admission Dx: Yes MARTIN RAMIRES MD May 29, 2020 11:12
[2020-05-29 11:24] LABS: BASO % 0 % (0-3); EOS # 0.2 x10^3/uL (0.0-0.7); EOS % 3 % (0-3); HEMOGLOBIN 13.1 g/dL (13.0-17.5); LYMPH # 0.8 x10^3/uL (1.0-4.8); LYMPH % 17 % (24-48); MEAN CORPUSCULAR HEMOGLOBIN 34 pg (25-35); MEAN CORPUSCULAR HGB CONC 35 g/dL (31-37); MEAN CORPUSCULAR VOLUME 98 fL (79-100); MONO # 0.4 x10^3/uL (0.0-1.1); MONO % 7 % (0-9); NEUT # 3.7 x10^3/uL (1.8-7.7); NEUT % 73 % (31-73); PLATELET COUNT 143 x10^3/uL (140-400); RED BLOOD COUNT 3.88 x10^6/uL (4.30-5.70); RED CELL DISTRIBUTION WIDTH 12.8 % (11.5-14.5)
[2020-05-29 11:30] LABS: CALCIUM 8.5 mg/dL (8.5-10.1); CREATININE 0.9 mg/dL (0.7-1.3); GFR 79.6; POTASSIUM 3.8 mmol/L (3.5-5.1)
[2020-05-29] MEDS ORDERED: MORPHINE SULFATE 2 MG/ML VIAL. IV ONE (11:30)
[2020-05-29 11:31] LABS: PROTHROMBIN TIME PATIENT 14.3 SEC (11.7-14.0)
[2020-05-29 11:36] LABS: ALBUMIN 3.1 g/dL (3.4-5.0); ALBUMIN/GLOBULIN RATIO 0.9 (1.0-1.7); TOTAL BILIRUBIN 0.4 mg/dL (0.2-1.0); TOTAL PROTEIN 6.4 g/dL (6.4-8.2)
--- NOTE | 2020-05-29 11:39 | RAD ---
EXAM: CHEST ONE VIEW. HISTORY: Fall, pain. COMPARISON: 10/21/2017. FINDINGS: A frontal view of the chest is obtained. There are changes of coronary artery bypass grafting. There are no confluent infiltrates. There is no pneumothorax or pleural effusion. The heart is not enlarged. A chronic large retrocardiac opacity is consistent with a large hiatal hernia. There are atherosclerotic calcifications of the aorta. IMPRESSION: 1. Correlate for a large hiatal hernia. Electronically signed by: Donna Garvey MD (05/29/2020 11:36 AM) [id number]
--- NOTE | 2020-05-29 11:40 | RAD ---
AP view of the pelvis and two-view study right hip Clinical indications: Fall. Right hip pain. FINDINGS: A basicervical right femoral neck fracture is seen. However, in the lateral view there is a fracture line seen extending through the greater trochanter with mild inferior displacement of the greater trochanteric fracture fragment. In addition, a small chip fracture of the upper aspect of the lesser trochanter is seen. Therefore, this is consistent with an intertrochanteric fracture. There is a mild resultant varus deformity. No lytic process is seen. 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 No acute fracture of the pelvic bones is seen. No diastases of the symphysis pubis or either SI joint is seen. No lytic process is evident. IMPRESSION: Impacted intertrochanteric fracture of the proximal right femur. Electronically signed by: Krzysztof Jorge MD (05/29/2020 11:37 AM) [id number]
[2020-05-29] MEDS ORDERED: MORPHINE SULFATE 2 MG/ML VIAL. IV PRN ×3 (11:45→17:45)
[2020-05-29] MEDS ORDERED: ONDANSETRON PF 4 MG/2 ML VIAL. IV PRN ×3 (11:45→17:45)
[2020-05-29] MEDS ORDERED: ZOLPIDEM 5 MG TABLET. PO PRN (13:30)
[2020-05-29] MEDS ORDERED: ALBUTEROL SULFATE 2.5 MG/3 ML NEBU. NEB PRN (13:30)
[2020-05-29] MEDS ORDERED: ACETAMINOPHEN 650 MG SUPP.RECT. PR PRN (13:30)
[2020-05-29] MEDS ORDERED: LORazepam 0.5 MG TABLET PO PRN (13:30)
[2020-05-29] MEDS ORDERED: ACETAMINOPHEN 325 MG TABLET. PO PRN (13:30)
[2020-05-29] MEDS ORDERED: guaiFENesin ORAL 200 MG/10 ML LIQUID. PO PRN (13:30)
[2020-05-29] MEDS: IV NORMAL SALINE 1000ML BAG 1,000 ML IV SCH ×2 (14:00→19:34)
[2020-05-29] MEDS ORDERED: ONDANSETRON PF 4 MG/2 ML VIAL. ONE (14:18)
[2020-05-29] MEDS ORDERED: DEXAMETHASONE SOD PHOS 4 MG/ML VIAL ONE (14:18)
[2020-05-29] MEDS ORDERED: LIDOCAINE 2% PF 5 ML VIAL. ONE (14:18)
[2020-05-29] MEDS ORDERED: PROPOFOL 10 MG/ML (20ML) VIAL. IV ONE (14:18)
[2020-05-29] MEDS ORDERED: FAMOTIDINE 20 MG/2 ML VIAL ONE (14:19)
--- NOTE | 2020-05-29 15:02 | NUR ---
admitted from the ER . he fell after watering his plants this am.He has fractured his right hip. area is swollen . He has good sensation and pulses bilateral lower extremities. grandson is at bedside. He remains npo. grandson at bedside. He wished to be NO code Blue. explained that surgery will pre-empt this. if his heart stops during surgery they would attempt to revive him. They would like to speak with him
--- NOTE | 2020-05-29 15:09 | NUR ---
transferred to surgery.
[2020-05-29] MEDS ORDERED: traMADol 50 MG TABLET PO PRN (15:45)
[2020-05-29] MEDS ORDERED: fentaNYL PF VIAL 100 MCG/2 ML VIAL IVP PRN (15:45)
[2020-05-29] MEDS ORDERED: ONDANSETRON PF 4 MG/2 ML VIAL. IVP PRN (15:45)
[2020-05-29] MEDS ORDERED: DEXTROSE 50% 25 GM / 50ML DISP.SYRIN. IV PRN (15:45)
[2020-05-29] MEDS ORDERED: HYDROcodone/APAP 7.5/325MG 1 TAB TABLET PO PRN (15:45)
[2020-05-29] MEDS ORDERED: MORPHINE SULFATE 2 MG/ML VIAL. IVP PRN (15:45)
[2020-05-29] MEDS ORDERED: POLYETHYLENE GLYCOL 3350 17 GM PACKET. PO PRN (15:45)
[2020-05-29] MEDS ORDERED: ENOXAPARIN 40 MG/0.4 ML SYRINGE. SQ SCH (16:00)
[2020-05-29] MEDS ORDERED: WARFARIN 7.5 MG TABLET. PO ONE (16:00)
[2020-05-29] MEDS ORDERED: fentaNYL PF VIAL 100 MCG/2 ML VIAL ONE (16:03)
[2020-05-29] MEDS ORDERED: ePHEDrine PF IN SALINE 50 MG/10 ML SYRINGE. IV ONE (16:43)
[2020-05-29] MEDS ORDERED: PHENYLEPHRINE in 0.9% NACL PF 1 MG/10 ML SYRINGE. IV ONE (16:43)
[2020-05-29] MEDS ORDERED: SEVOFLURANE 61 TO 120 MINUTES. IH ONE (16:43)
[2020-05-29] MEDS ORDERED: IV RINGERS,LACTATED 1000ML 1,000 ML IV SCH (17:33)
--- NOTE | 2020-05-29 17:33 | RAD ---
EXAM: Right hip, 6 views. HISTORY: Fracture fixation. COMPARISON: 05/29/2020 FINDINGS: 6 fluoroscopic images of the right hip are obtained. There is internal fixation of a right femoral intertrochanteric fracture. The total fluoroscopy time is 1.3 minutes. IMPRESSION: Fluoroscopic imaging for procedural guidance during right femoral intertrochanteric fracture fixation. Electronically signed by: Adriana Nielsen MD (05/29/2020 5:30 PM) [facility]
[2020-05-29] MEDS ORDERED: HYDROmorphone 2 MG/ML VIAL IV PRN (17:45)
[2020-05-29] MEDS ORDERED: fentaNYL PF VIAL 100 MCG/2 ML VIAL IV PRN ×2 (17:45)
[2020-05-29] MEDS ORDERED: LIDOCAINE 1% PF 2 ML VIAL. ID PRN (17:45)
[2020-05-29] MEDS ORDERED: PROCHLORPERAZINE 10 MG/2 ML VIAL. IV PRN (17:45)
--- NOTE | 2020-05-29 17:47 | PDOC4 ---
Operative Note Operative Note Date of surgery: 05/29/2020 Preoperative diagnosis: Displaced right intertrochanteric hip fracture Postoperative diagnosis: Same Operative procedure: Operative reduction internal fixation right intertrochanteric hip fracture with intramedullary fixation Surgeon: Patricia Anesthesia: General Estimated blood loss: 100 cc Complications: None Operative indications: Please see my dictated orthopedic consultation for detailed operative indications Operative text: Patient was identified procedure verified patient placed in the supine position on the [place] fracture table after adequate amounts of general anesthesia were administered and the right leg was placed in traction the well- leg placed in the well-leg starr all bony prominences were well-padded and the right hip was reduced under fluoroscopic guidance and was prepped and draped in standard sterile fashion. After timeout was performed patient procedure identified and verified, an incision was made just proximal to the greater trochanteric entry point and sharp entry awl was used to place a long guidewire intramedullary entry reamer was advanced and an Afyxis nail 13 mm diameter by 180 mm length 130 degree was advanced and a guidewire placed to the center of the femoral neck and a size 110 lag screw was placed for slight compression after drilling to a 115. Antirotation screw was placed superiorly at a size 90 and excellent reduction was noted under multiple fluoroscopic views. A distal static locking screw was placed reduction and all hardware placement was verified under multiple fluoroscopic views thorough irrigation carried out normal saline solution closure of the fascia with buried Vicryl suture subcutaneous closure with buried Vicryl skin closure with ca sterile dressings were applied. Patient was returned to recovery room in stable condition having tolerated procedure well PHU ESQUIVEL MD May 29, 2020 17:46
--- NOTE | 2020-05-29 18:21 | NUR ---
received from recovery. he is alert and oriented x4. daughter is at bedside. he has good sensation, pulses and motion bilateral lower extremities. dressing to right hip is clean dry and intact. iv infusing in the right ac. scd bilateral applied he is rating his pain a "4" at this time and considers that comfortable
[2020-05-29] MEDS: oxyCODONE IR 5 MG TABLET PO PRN (19:32)
--- NOTE | 2020-05-29 23:17 | CONS ---
DATE OF CONSULTATION: 05/29/2020 EMERGENCY DEPARTMENT CONSULTATION REQUESTING PHYSICIAN: Dr. Pedraza. REASON FOR CONSULTATION: Right hip fracture. HISTORY OF PRESENT ILLNESS: The patient is an 89-year-old male who missed a step and fell on his right side, had immediate onset of pain, deformity, and inability to bear weight on his right hip and has severe pain with any range of motion or pressure on the right hip. It throbs and radiates down the right thigh. He denies any loss of consciousness, head injury, or other joint pain. He has had a total hip arthroplasty by Dr. Cavazos a few years ago on the left. PAST MEDICAL HISTORY: Significant for coronary artery disease, reflux disease, hypertension, and history of heart attack. PAST SURGICAL HISTORY: Coronary artery bypass and appendectomy as well as a hernia repair and the left total hip arthroplasty. FAMILY HISTORY: Noncontributory. SOCIAL HISTORY: Denies smoking, alcohol, or drug use. ALLERGIES: INCLUDE PENICILLINS. REVIEW OF SYSTEMS: Again, no head injury. He complains of no neck or back pain, radiating pain, focal weakness, numbness, or tingling. No chest pain or shortness of breath. No recent febrile illness, urinary symptoms, or other constitutional symptoms. PHYSICAL EXAMINATION: GENERAL: A pleasant, cooperative 89-year-old male, alert and oriented, no acute distress. HEENT: Atraumatic and normocephalic. HEART: Regular rate and rhythm. LUNGS: Clear to auscultation bilaterally. ABDOMEN: Benign. EXTREMITIES: Examination of upper extremities, he has full range of motion of both shoulders, elbows, and wrists bilaterally. No tenderness on palpation or instability. No tenderness on palpation in the midline over the neck or back. On examination of lower extremities, he has a well-healed incision on the left hip from a posterior approach total hip arthroplasty and has good range of motion of the left hip. Right hip is somewhat rotated, has severe pain with any palpation or any motion. Normal alignment and stability of bilateral knees and ankles and overall intact motor function, distal pulses, sensation, reflexes, and skin in both upper and lower extremities throughout. IMAGING: X-rays, AP pelvis shows a displaced intertrochanteric fracture of the right hip. Left total hip arthroplasty shows no evidence of any loosening. IMPRESSION: 1. Displaced right intertrochanteric hip fracture. 2. History of previous coronary artery bypass with no symptoms. TREATMENT PLAN: I had gone over with him and his grandson the rationale for operative treatment, the possible nonoperative treatment options of traction, which would generally be over a period of several weeks and the immobility-related complications of that which are undesirable and the operative recommendation of fixation of the hip fracture, so he can get up and move, ambulate and transfer with partial weightbearing avoiding the immobility-related complications. Of course, there could be surgical complications of infection, nerve or blood vessel damage, nonhealing, medical or other anesthetic complications among others. He verbalized understanding to this and wishes to proceed with surgical evaluation and treatment. He was evaluated by Dr. Hart and contact was made with Dr. Corrigan, who follows him following the coronary artery bypass and he was scheduled for a stress test recently, but that was put off due to COVID, but due to his lack of symptoms, Dr. Corrigan gave cardiac clearance for proceeding with his hip surgery today. We are planning to proceed a bit after 3 o'clock as he is n.p.o. since 9:00 a.m. when he had breakfast to avoid any aspiration precautions, etc. PHU ESQUIVEL MD DR: JUAN M/bjorn JOB#: [id number] / [id number]
--- NOTE | 2020-05-29 23:58 | PDOC1 ---
History and Physical Date of Admission Date of Admission 05/29/2020 Identification/Chief Complaint Chief Complaint I fell Source Source: Chart review, Patient History of Present Illness History of Present Illness Patient is an 89-year-old gentleman with past medical history of coronary artery disease status post CABG approximately 10 years ago who follows up on a regular basis with Dr. massey. The patient was in his usual state of health until today when apparently he lost his footing and fell over his right side. He had exquisite pain over the affected area on the right side of his hip he tried to get up by himself but the pain was overbearing. The patient yelled for help and crista enough his neighbor heard him and summoned EMS. The patient was brought to the emergency department for further evaluation and treatment he had obvious deformity over the right hip. The patient at the time of my evaluation is in no acute distress pain seems to be well controlled, the patient denies any paro xysmal internal dyspnea no angina type of symptoms no shortness of breath no changes to his medications. Dr. Schaffer he has been following him and I discussed the case over the phone. The patient seems to be hemodynamically stable and medically optimized and at acceptable risk for the moderate risk procedure. Case discussed also with orthopedic energy sales consultant reassurance provided to the patient plan of care explained detail all concerns addressed to the best of my abilities Past Medical History Cardiovascular: CAD, HTN, [place] Past Surgical History Past Surgical History: Appendectomy, CABG, Total hip replacement Family History Family History: No Significant Social History Smoke: No ALCOHOL: none Drugs: None Current Problem List Problem List Problems Medical Problems: (1) Intertrochanteric fracture of right hip Status: Acute Current Medications Current Medications Current Medications Medications (Trade) Dose Ordered Sig/Ginny Start Time Stop Time Status Last Admin Dose Admin Acetaminophen (Tylenol Supp) 650 mg PRN Q4HRS PRN 05/29/20 13:30 Acetaminophen (Tylenol) 650 mg PRN Q4HRS PRN 05/29/20 13:30 Acetaminophen/ Hydrocodone Bitart (Lortab 7.5/325) 1 tab PRN Q4HRS PRN 05/29/20 15:45 Albuterol Sulfate (Ventolin Neb Soln) 2.5 mg PRN Q4HRS PRN 05/29/20 13:30 Bisacodyl (Dulcolax Supp) 10 mg 1X PRN PRN 05/30/20 16:00 05/31/20 15:59 Cefazolin Sodium/ Dextrose 50 ml @ 100 mls/hr Q6H 05/30/20 00:00 05/30/20 12:29 05/29/20 23:35 100 MLS/HR Dexamethasone Sodium Phosphate (Decadron) 4 mg STK-MED ONCE 05/29/20 14:18 05/29/20 14:18 DC Dextrose (Dextrose 50%-Water Syringe) 12.5 gm PRN Q15MIN PRN 05/29/20 15:45 Docusate Sodium (Colace) 100 mg PRN BID PRN 05/29/20 13:30 Enoxaparin Sodium (Lovenox 40mg Syringe) 40 mg Q24H 05/30/20 09:00 Ephedrine Sulfate (ePHEDrine PF IN SALINE SYRINGE) 50 mg STK-MED ONCE 05/29/20 16:43 05/29/20 16:43 DC Famotidine (Pepcid Vial) 20 mg STK-MED ONCE 05/29/20 14:19 05/29/20 14:19 DC Fentanyl Citrate (Fentanyl 2ml Vial) 50 mcg PRN Q5MIN PRN 05/29/20 17:45 05/30/20 02:00 Guaifenesin (Robitussin) 200 mg PRN Q4HRS PRN 05/29/20 13:30 Hydromorphone HCl (Dilaudid) 0.5 mg PRN Q10MIN PRN 05/29/20 17:45 05/30/20 02:00 Lidocaine HCl (Lidocaine Pf 2% Vial) 5 ml STK-MED ONCE 05/29/20 14:18 05/29/20 14:18 DC Lidocaine HCl (Xylocaine-Mpf 1% 2ml Vial) 2 ml PRN 1X PRN 05/29/20 17:45 05/30/20 02:00 Lorazepam (Ativan) 0.5 mg PRN Q4HRS PRN 05/29/20 13:30 Magnesium Hydroxide (Milk Of Magnesia) 2,400 mg 1X PRN PRN 05/30/20 06:00 05/31/20 05:59 Morphine Sulfate (Morphine Sulfate) 1 mg PRN Q10MIN PRN 05/29/20 17:45 05/30/20 02:00 Ondansetron HCl (Zofran) 4 mg PRN Q6HRS PRN 05/29/20 17:45 05/30/20 02:00 Oxycodone HCl (Roxicodone) 5 mg PRN Q3HRS PRN 05/29/20 15:45 05/29/20 19:32 5 MG Phenylephrine HCl (PHENYLEPHRINE in 0.9% NACL PF) 1 mg STK-MED ONCE 05/29/20 16:43 05/29/20 16:43 DC Polyethylene Glycol (miraLAX PACKET) 17 gm PRN DAILY PRN 05/29/20 15:45 Prochlorperazine Edisylate (Compazine) 5 mg PACU PRN PRN 05/29/20 17:45 05/30/20 02:00 Propofol (Diprivan) 200 mg STK-MED ONCE 05/29/20 14:18 05/29/20 14:18 DC Ringer's Solution 1,000 ml @ 30 mls/hr Q24H 05/29/20 17:33 05/30/20 05:32 Senna/Docusate Sodium (Senna Plus) 1 tab DAILY 05/30/20 09:00 Sevoflurane (Ultane) 60 ml STK-MED ONCE 05/29/20 16:43 05/29/20 16:43 DC Sodium Chloride 1,000 ml @ 75 mls/hr [id number] 05/29/20 14:00 05/29/20 19:34 75 MLS/HR Tramadol HCl (Ultram) 50 mg PRN QID PRN 05/29/20 15:45 Warfarin Sodium (Coumadin Per Pharmacy) 1 each PRN DAILY PRN 05/30/20 15:45 Warfarin Sodium (Coumadin) 7.5 mg 1X ONCE 05/29/20 16:00 05/29/20 16:01 DC 05/29/20 19:32 7.5 MG Zolpidem Tartrate (Ambien) 5 mg PRN QHS PRN 05/29/20 13:30 Allergies Allergies Allergies Coded Allergies Type Severity Reaction Last Updated Verified Penicillins Allergy Intermediate 11/04/17 Yes ROS Review of System CONSTITUTIONAL: No fever or chills EYES: No recent changes SKIN: No rash or itching CARDIOVASCULAR: No chest pain, syncope, palpitations, or edema RESPIRATORY: No SOB or cough GASTROINTESTINAL: No nausea, vomiting or abdominal pain NEUROLOGICAL: No headaches or weakness ENDOCRINE: No cold or heat intolerance GENITOURINARY: No urgency or frequency of urination MUSCULOSKELETAL: No back pain or joint pain LYMPHATICS: No enlarged lymph nodes PSYCHIATRIC: No anxiety or depression Physical Exam Physical Exam GEN.: No apparent distress. Alert and oriented. HEENT: Head is normocephalic, atraumatic NECK: Supple. LUNGS: Clear to auscultation. HEART: RRR, S1, S2 present. Peripheral pulses intact ABDOMEN: Soft, nontender. Positive bowel sounds. EXTREMITIES: Without any cyanosis. NEUROLOGIC: Normal speech, normal tone PSYCHIATRIC: Normal affect, normal mood. SKIN: No ulcerations Vitals Vitals Vital Signs Date Time Temp Pulse Resp B/P (MAP) Pulse Ox O2 Delivery O2 Flow Rate FiO2 05/29/20 21:00 85 20 114/59 (77) 97 Room Air 05/29/20 20:32 1.0 05/29/20 17:50 99.6 99.6 Labs Labs Laboratory Tests Test 05/29/20 11:12 05/29/20 11:35 White Blood Count 5.0 x10^3/uL (4.0-11.0) Red Blood Count 3.88 x10^6/uL (4.30-5.70) Hemoglobin 13.1 g/dL (13.0-17.5) Hematocrit 38.0 % (39.0-53.0) Mean Corpuscular Volume 98 fL (79-100) Mean Corpuscular Hemoglobin 34 pg (25-35) Mean Corpuscular Hemoglobin Concent 35 g/dL (31-37) Red Cell Distribution Width 12.8 % (11.5-14.5) Platelet Count 143 x10^3/uL (140-400) Neutrophils (%) (Auto) 73 % (31-73) Lymphocytes (%) (Auto) 17 % (24-48) Monocytes (%) (Auto) 7 % (0-9) Eosinophils (%) (Auto) 3 % (0-3) Basophils (%) (Auto) 0 % (0-3) Neutrophils # (Auto) 3.7 x10^3/uL (1.8-7.7) Lymphocytes # (Auto) 0.8 x10^3/uL (1.0-4.8) Monocytes # (Auto) 0.4 x10^3/uL (0.0-1.1) Eosinophils # (Auto) 0.2 x10^3/uL (0.0-0.7) Basophils # (Auto) 0.0 x10^3/uL (0.0-0.2) Prothrombin Time 14.3 SEC (11.7-14.0) Prothromb Time International Ratio 1.2 (0.8-1.1) Activated Partial Thromboplast Time 31 SEC (24-38) Sodium Level 135 mmol/L (136-145) Potassium Level 3.8 mmol/L (3.5-5.1) Chloride Level 99 mmol/L (98-107) Carbon Dioxide Level 27 mmol/L (21-32) Anion Gap 9 (6-14) Blood Urea Nitrogen 17 mg/dL (8-26) Creatinine 0.9 mg/dL (0.7-1.3) Estimated GFR (Cockcroft-Gault) 79.6 BUN/Creatinine Ratio 19 (6-20) Glucose Level 129 mg/dL (70-99) Calcium Level 8.5 mg/dL (8.5-10.1) Total Bilirubin 0.4 mg/dL (0.2-1.0) Aspartate Amino Transf (AST/SGOT) 15 U/L (15-37) Alanine Aminotransferase (ALT/SGPT) 18 U/L (16-63) Alkaline Phosphatase 80 U/L (46-116) Total Protein 6.4 g/dL (6.4-8.2) Albumin 3.1 g/dL (3.4-5.0) Albumin/Globulin Ratio 0.9 (1.0-1.7) SARS-CoV-2 Antigen (Rapid) Negative (NEGATIVE) Laboratory Tests Test 05/29/20 11:12 05/29/20 11:35 White Blood Count 5.0 x10^3/uL (4.0-11.0) Red Blood Count 3.88 x10^6/uL (4.30-5.70) Hemoglobin 13.1 g/dL (13.0-17.5) Hematocrit 38.0 % (39.0-53.0) Mean Corpuscular Volume 98 fL (79-100) Mean Corpuscular Hemoglobin 34 pg (25-35) Mean Corpuscular Hemoglobin Concent 35 g/dL (31-37) Red Cell Distribution Width 12.8 % (11.5-14.5) Platelet Count 143 x10^3/uL (140-400) Neutrophils (%) (Auto) 73 % (31-73) Lymphocytes (%) (Auto) 17 % (24-48) Monocytes (%) (Auto) 7 % (0-9) Eosinophils (%) (Auto) 3 % (0-3) Basophils (%) (Auto) 0 % (0-3) Neutrophils # (Auto) 3.7 x10^3/uL (1.8-7.7) Lymphocytes # (Auto) 0.8 x10^3/uL (1.0-4.8) Monocytes # (Auto) 0.4 x10^3/uL (0.0-1.1) Eosinophils # (Auto) 0.2 x10^3/uL (0.0-0.7) Basophils # (Auto) 0.0 x10^3/uL (0.0-0.2) Prothrombin Time 14.3 SEC (11.7-14.0) Prothromb Time International Ratio 1.2 (0.8-1.1) Activated Partial Thromboplast Time 31 SEC (24-38) Sodium Level 135 mmol/L (136-145) Potassium Level 3.8 mmol/L (3.5-5.1) Chloride Level 99 mmol/L (98-107) Carbon Dioxide Level 27 mmol/L (21-32) Anion Gap 9 (6-14) Blood Urea Nitrogen 17 mg/dL (8-26) Creatinine 0.9 mg/dL (0.7-1.3) Estimated GFR (Cockcroft-Gault) 79.6 BUN/Creatinine Ratio 19 (6-20) Glucose Level 129 mg/dL (70-99) Calcium Level 8.5 mg/dL (8.5-10.1) Total Bilirubin 0.4 mg/dL (0.2-1.0) Aspartate Amino Transf (AST/SGOT) 15 U/L (15-37) Alanine Aminotransferase (ALT/SGPT) 18 U/L (16-63) Alkaline Phosphatase 80 U/L (46-116) Total Protein 6.4 g/dL (6.4-8.2) Albumin 3.1 g/dL (3.4-5.0) Albumin/Globulin Ratio 0.9 (1.0-1.7) SARS-CoV-2 Antigen (Rapid) Negative (NEGATIVE) VTE Prophylaxis Ordered VTE Prophylaxis Devices: Yes VTE Pharmacological Prophylaxi: Yes Assessment/Plan Assessment/Plan Displaced right intertrochanteric hip fracture History of coronary artery disease status post CABG currently asymptomatic Essential hypertension History of reflux disease Hyponatremia secondary to pain mediated response most likely Plan Patient may be taken to the OR for open reduction internal fixation of his fracture We will resume home medication Recommend perioperative beta-blockers DVT prophylaxis as per energy sales consultant Pain management Further recommendations based on the clinical course TERRY WEBSTER MD May 29, 2020 23:58
[2020-05-30 03:00] VITALS: BP 98/58
[2020-05-30] MEDS: oxyCODONE IR 5 MG TABLET PO PRN (05:59)
[2020-05-30] MEDS ORDERED: MAGNESIUM HYDROXIDE 2,400 MG/30 ML ORAL.SUSP. PO PRN (06:00)
[2020-05-30 07:00] VITALS: BP 93/57
--- NOTE | 2020-05-30 07:44 | EKG ---
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
[2020-05-30] MEDS: SENNOSIDES/DOCUSATE 8.6/50MG TABLET. PO SCH (08:35)
[2020-05-30] MEDS: ENOXAPARIN 40 MG/0.4 ML SYRINGE. SQ SCH (08:37)
[2020-05-30 09:15] LABS: BASO % 0 % (0-3); EOS # 0.1 x10^3/uL (0.0-0.7); EOS % 1 % (0-3); HEMOGLOBIN 10.4 g/dL (13.0-17.5); LYMPH # 0.7 x10^3/uL (1.0-4.8); LYMPH % 11 % (24-48); MEAN CORPUSCULAR HEMOGLOBIN 35 pg (25-35); MEAN CORPUSCULAR HGB CONC 35 g/dL (31-37); MEAN CORPUSCULAR VOLUME 99 fL (79-100); MONO # 0.6 x10^3/uL (0.0-1.1); MONO % 10 % (0-9); NEUT # 4.7 x10^3/uL (1.8-7.7); NEUT % 78 % (31-73); PLATELET COUNT 132 x10^3/uL (140-400); RED BLOOD COUNT 3.02 x10^6/uL (4.30-5.70); RED CELL DISTRIBUTION WIDTH 12.8 % (11.5-14.5)
[2020-05-30] MEDS ORDERED: diphenhydrAMINE HCL 25 MG CAPSULE PO PRN (09:30)
[2020-05-30 09:32] LABS: CALCIUM 7.9 mg/dL (8.5-10.1); CREATININE 1.3 mg/dL (0.7-1.3); GFR 52.1; POTASSIUM 4.7 mmol/L (3.5-5.1)
[2020-05-30] MEDS: POLYETHYLENE GLYCOL 3350 17 GM PACKET. PO SCH (10:00)
[2020-05-30] MEDS: TRIAMTERENE/HCTZ 37.5/25MG TABLET. PO SCH (10:00)
--- NOTE | 2020-05-30 10:06 | PDOC ---
ORTHO PROGRESS NOTES DATE: 05/30/20 TIME: 09:55 Subjective Patient lying in bed with washcloth on his head after trying to get up with physical therapy and becoming dizzy. He states that he may have become dizzy when he fell and injured the right hip. He has been unable to get out related to the COVID-19 virus and see his commercial real estate assistant Dr. Goodson Post-op Day: 1 Procedure Open reduction internal fixation of right intertrochanteric fracture with IM nail. Vitals Vital Signs Date Time Temp Pulse Resp B/P (MAP) Pulse Ox O2 Delivery O2 Flow Rate FiO2 05/30/20 08:37 Room Air 05/30/20 07:14 16 05/30/20 07:00 97.8 88 93/57 (69) 94 97.8 05/29/20 20:32 1.0 Labs Laboratory Tests Test 05/29/20 11:12 05/29/20 11:35 05/30/20 08:35 White Blood Count 5.0 x10^3/uL (4.0-11.0) 6.0 x10^3/uL (4.0-11.0) Red Blood Count 3.88 x10^6/uL (4.30-5.70) 3.02 x10^6/uL (4.30-5.70) Hemoglobin 13.1 g/dL (13.0-17.5) 10.4 g/dL (13.0-17.5) Hematocrit 38.0 % (39.0-53.0) 30.0 % (39.0-53.0) Mean Corpuscular Volume 98 fL (79-100) 99 fL (79-100) Mean Corpuscular Hemoglobin 34 pg (25-35) 35 pg (25-35) Mean Corpuscular Hemoglobin Concent 35 g/dL (31-37) 35 g/dL (31-37) Red Cell Distribution Width 12.8 % (11.5-14.5) 12.8 % (11.5-14.5) Platelet Count 143 x10^3/uL (140-400) 132 x10^3/uL (140-400) Neutrophils (%) (Auto) 73 % (31-73) 78 % (31-73) Lymphocytes (%) (Auto) 17 % (24-48) 11 % (24-48) Monocytes (%) (Auto) 7 % (0-9) 10 % (0-9) Eosinophils (%) (Auto) 3 % (0-3) 1 % (0-3) Basophils (%) (Auto) 0 % (0-3) 0 % (0-3) Neutrophils # (Auto) 3.7 x10^3/uL (1.8-7.7) 4.7 x10^3/uL (1.8-7.7) Lymphocytes # (Auto) 0.8 x10^3/uL (1.0-4.8) 0.7 x10^3/uL (1.0-4.8) Monocytes # (Auto) 0.4 x10^3/uL (0.0-1.1) 0.6 x10^3/uL (0.0-1.1) Eosinophils # (Auto) 0.2 x10^3/uL (0.0-0.7) 0.1 x10^3/uL (0.0-0.7) Basophils # (Auto) 0.0 x10^3/uL (0.0-0.2) 0.0 x10^3/uL (0.0-0.2) Prothrombin Time 14.3 SEC (11.7-14.0) Prothromb Time International Ratio 1.2 (0.8-1.1) Activated Partial Thromboplast Time 31 SEC (24-38) Sodium Level 135 mmol/L (136-145) 134 mmol/L (136-145) Potassium Level 3.8 mmol/L (3.5-5.1) 4.7 mmol/L (3.5-5.1) Chloride Level 99 mmol/L (98-107) 99 mmol/L (98-107) Carbon Dioxide Level 27 mmol/L (21-32) 24 mmol/L (21-32) Anion Gap 9 (6-14) 11 (6-14) Blood Urea Nitrogen 17 mg/dL (8-26) 30 mg/dL (8-26) Creatinine 0.9 mg/dL (0.7-1.3) 1.3 mg/dL (0.7-1.3) Estimated GFR (Cockcroft-Gault) 79.6 52.1 BUN/Creatinine Ratio 19 (6-20) Glucose Level 129 mg/dL (70-99) 163 mg/dL (70-99) Calcium Level 8.5 mg/dL (8.5-10.1) 7.9 mg/dL (8.5-10.1) Total Bilirubin 0.4 mg/dL (0.2-1.0) Aspartate Amino Transf (AST/SGOT) 15 U/L (15-37) Alanine Aminotransferase (ALT/SGPT) 18 U/L (16-63) Alkaline Phosphatase 80 U/L (46-116) Total Protein 6.4 g/dL (6.4-8.2) Albumin 3.1 g/dL (3.4-5.0) Albumin/Globulin Ratio 0.9 (1.0-1.7) SARS-CoV-2 Antigen (Rapid) Negative (NEGATIVE) Laboratory Tests Test 05/29/20 11:12 05/29/20 11:35 05/30/20 08:35 White Blood Count 5.0 x10^3/uL (4.0-11.0) 6.0 x10^3/uL (4.0-11.0) Red Blood Count 3.88 x10^6/uL (4.30-5.70) 3.02 x10^6/uL (4.30-5.70) Hemoglobin 13.1 g/dL (13.0-17.5) 10.4 g/dL (13.0-17.5) Hematocrit 38.0 % (39.0-53.0) 30.0 % (39.0-53.0) Mean Corpuscular Volume 98 fL (79-100) 99 fL (79-100) Mean Corpuscular Hemoglobin 34 pg (25-35) 35 pg (25-35) Mean Corpuscular Hemoglobin Concent 35 g/dL (31-37) 35 g/dL (31-37) Red Cell Distribution Width 12.8 % (11.5-14.5) 12.8 % (11.5-14.5) Platelet Count 143 x10^3/uL (140-400) 132 x10^3/uL (140-400) Neutrophils (%) (Auto) 73 % (31-73) 78 % (31-73) Lymphocytes (%) (Auto) 17 % (24-48) 11 % (24-48) Monocytes (%) (Auto) 7 % (0-9) 10 % (0-9) Eosinophils (%) (Auto) 3 % (0-3) 1 % (0-3) Basophils (%) (Auto) 0 % (0-3) 0 % (0-3) Neutrophils # (Auto) 3.7 x10^3/uL (1.8-7.7) 4.7 x10^3/uL (1.8-7.7) Lymphocytes # (Auto) 0.8 x10^3/uL (1.0-4.8) 0.7 x10^3/uL (1.0-4.8) Monocytes # (Auto) 0.4 x10^3/uL (0.0-1.1) 0.6 x10^3/uL (0.0-1.1) Eosinophils # (Auto) 0.2 x10^3/uL (0.0-0.7) 0.1 x10^3/uL (0.0-0.7) Basophils # (Auto) 0.0 x10^3/uL (0.0-0.2) 0.0 x10^3/uL (0.0-0.2) Prothrombin Time 14.3 SEC (11.7-14.0) Prothromb Time International Ratio 1.2 (0.8-1.1) Activated Partial Thromboplast Time 31 SEC (24-38) Sodium Level 135 mmol/L (136-145) 134 mmol/L (136-145) Potassium Level 3.8 mmol/L (3.5-5.1) 4.7 mmol/L (3.5-5.1) Chloride Level 99 mmol/L (98-107) 99 mmol/L (98-107) Carbon Dioxide Level 27 mmol/L (21-32) 24 mmol/L (21-32) Anion Gap 9 (6-14) 11 (6-14) Blood Urea Nitrogen 17 mg/dL (8-26) 30 mg/dL (8-26) Creatinine 0.9 mg/dL (0.7-1.3) 1.3 mg/dL (0.7-1.3) Estimated GFR (Cockcroft-Gault) 79.6 52.1 BUN/Creatinine Ratio 19 (6-20) Glucose Level 129 mg/dL (70-99) 163 mg/dL (70-99) Calcium Level 8.5 mg/dL (8.5-10.1) 7.9 mg/dL (8.5-10.1) Total Bilirubin 0.4 mg/dL (0.2-1.0) Aspartate Amino Transf (AST/SGOT) 15 U/L (15-37) Alanine Aminotransferase (ALT/SGPT) 18 U/L (16-63) Alkaline Phosphatase 80 U/L (46-116) Total Protein 6.4 g/dL (6.4-8.2) Albumin 3.1 g/dL (3.4-5.0) Albumin/Globulin Ratio 0.9 (1.0-1.7) SARS-CoV-2 Antigen (Rapid) Negative (NEGATIVE) Notes Awake and alert with family member in room. Assessment and Plan Postop day #1 status post ORIF right intertrochanteric fracture with IM nail. Motor and sensation intact distally at the right lower extremity. Dressing is dry and intact as it has just been changed but did have some serosanguineous drainage. Was up with physical therapy this morning but did have a dizzy spell. Have asked the RN to contact Dr. Salazar to come and evaluate him for medications. Continue physical therapy YANIQUE ROJAS APRN May 30, 2020 10:06
[2020-05-30 10:24] LABS: PROTHROMBIN TIME PATIENT 15.9 SEC (11.7-14.0)
--- NOTE | 2020-05-30 10:44 | NUR ---
Pharmacy Warfarin Dosing Note S:Pharmacy consulted to assist with anticoagulation therapy started with target INR: 1.6 - 2.5 O:YANIQUE FOX is a 89 year old M with Hip Fracture LABS: Last INR: 1.3 Last HGB: 10.4 Last HCT: 30 Last PLT: 132 Last dose of 7.5 mg given on 05/29/20 at 1932 Drug Interaction Changes: Same Interacting Drug Ongoing Drug Interactions: citalopram A:INR of 1.3 is below desired range. Target range for this patient is: 1.6 - 2.5 P: Warfarin dose: 4 mg Today at 1600 Bridge Therapy: Enoxaparin 40 mg q24h Next INR due 05/31/20 Pharmacy anticoagulation service will continue to follow. OTTO RADFORD RPH, 05/30/20 [id number]
[2020-05-30 11:00] VITALS: BP 111/56
--- NOTE | 2020-05-30 11:22 | PDOC2 ---
ANGELA RAGLAND CRTTS 05/30/20 1122: CARDIAC CONSULT DATE OF CONSULT Date of Consult DATE: 05/30/20 TIME: 11:10 REASON FOR CONSULT Reason for Consult: Orthostatic hypotension REFERRING PHYSICIAN Referring Physician: Dr. Hart SOURCE Source: Chart review, Patient HISTORY OF PRESENT ILLNESS HISTORY OF PRESENT ILLNESS This is an 89 yo male who presented secondary to right hip pain secondary to fall. Further imaging notable for right proximal femur intertrochanteric fracture. S/p surgical intervention yesterday afternoon. Tolerated surgery well. The morning, was dizzy upon standing. Was noted to be orthostatic, which prompted this consult. He denies and chest pain, palpitations, or SOA. PAST MEDICAL HISTORY Cardiovascular: CAD, CHF, HTN, Hyperlipidemia CENTRAL NERVOUS SYSTEM: Periperal neuropathy Musculoskeletal: Osteoarthritis PAST SURGICAL HISTORY Past Surgical History: Appendectomy, CABG, Hernia Repair FAMILY HISTORY Family History: Heart Disease, Hypertension SOCIAL HISTORY Smoke: No ALCOHOL: none Drugs: None Lives: Alone CURRENT MEDICATIONS CURRENT MEDICATIONS Current Medications Medications (Trade) Dose Ordered Sig/Ginny Route PRN Reason Start Time Stop Time Status Last Admin Dose Admin Morphine Sulfate (Morphine Sulfate) 2 mg 1X ONCE IV 05/29/20 11:30 05/29/20 11:31 DC 05/29/20 11:31 Morphine Sulfate (Morphine Sulfate) 2 mg PRN Q2HR PRN IV PAIN 05/29/20 11:45 05/29/20 13:33 DC 05/29/20 13:17 Sodium Chloride 1,000 ml @ 75 mls/hr [id number] IV 05/29/20 14:00 05/29/20 19:34 Oxycodone HCl (Roxicodone) 5 mg PRN Q3HRS PRN PO PAIN 05/29/20 15:45 05/30/20 05:59 Senna/Docusate Sodium (Senna Plus) 1 tab DAILY PO 05/30/20 09:00 05/30/20 08:35 Warfarin Sodium (Coumadin) 7.5 mg 1X ONCE PO 05/29/20 16:00 05/29/20 16:01 DC 05/29/20 19:32 Warfarin Sodium (Coumadin Per Pharmacy) 1 each PRN DAILY PRN MC SEE COMMENTS 05/30/20 15:45 05/30/20 10:43 Cefazolin Sodium/ Dextrose 50 ml @ 100 mls/hr Q6H IV 05/30/20 00:00 05/30/20 12:29 05/30/20 05:59 Enoxaparin Sodium (Lovenox 40mg Syringe) 40 mg Q24H SQ 05/30/20 09:00 05/30/20 08:37 ALLERGIES ALLERGIES: Coded Allergies: Penicillins (Verified Allergy, Intermediate, 11/04/17) ROS Review of System 14 point ROS conducted with pertinent positives noted above in HPi PHYSICAL EXAM General: Alert, Oriented X3, Cooperative, No acute distress HEENT: Atraumatic Lungs: Clear to auscultation, Other (diminished bases) Heart: Regular rate (not on tele) Abdomen: Soft, No tenderness Extremities: No edema, Normal pulses Skin: No significant lesion Neuro: Normal speech, Sensation intact Psych/Mental Status: Mental status NL MUSCULOSKELETAL: Osteoarthritic changes both hands VITALS/I&O VITALS/I&O: Vital Signs Date Time Temp Pulse Resp B/P (MAP) Pulse Ox O2 Delivery O2 Flow Rate FiO2 05/30/20 08:37 Room Air 05/30/20 07:14 16 05/30/20 07:00 97.8 88 93/57 (69) 94 97.8 05/29/20 20:32 1.0 I & O 05/29/20 05/29/20 05/30/20 15:00 23:00 07:00 Intake Total 850 ml 900 ml Output Total 400 ml 250 ml Balance 450 ml 650 ml LABS Lab: Laboratory Tests Test 05/29/20 11:12 05/29/20 11:35 05/30/20 08:35 White Blood Count 5.0 x10^3/uL (4.0-11.0) 6.0 x10^3/uL (4.0-11.0) Red Blood Count 3.88 x10^6/uL (4.30-5.70) L 3.02 x10^6/uL (4.30-5.70) L Hemoglobin 13.1 g/dL (13.0-17.5) 10.4 g/dL (13.0-17.5) L Hematocrit 38.0 % (39.0-53.0) L 30.0 % (39.0-53.0) L Mean Corpuscular Volume 98 fL (79-100) 99 fL (79-100) Mean Corpuscular Hemoglobin 34 pg (25-35) 35 pg (25-35) Mean Corpuscular Hemoglobin Concent 35 g/dL (31-37) 35 g/dL (31-37) Red Cell Distribution Width 12.8 % (11.5-14.5) 12.8 % (11.5-14.5) Platelet Count 143 x10^3/uL (140-400) 132 x10^3/uL (140-400) L Neutrophils (%) (Auto) 73 % (31-73) 78 % (31-73) H Lymphocytes (%) (Auto) 17 % (24-48) L 11 % (24-48) L Monocytes (%) (Auto) 7 % (0-9) 10 % (0-9) H Eosinophils (%) (Auto) 3 % (0-3) 1 % (0-3) Basophils (%) (Auto) 0 % (0-3) 0 % (0-3) Neutrophils # (Auto) 3.7 x10^3/uL (1.8-7.7) 4.7 x10^3/uL (1.8-7.7) Lymphocytes # (Auto) 0.8 x10^3/uL (1.0-4.8) L 0.7 x10^3/uL (1.0-4.8) L Monocytes # (Auto) 0.4 x10^3/uL (0.0-1.1) 0.6 x10^3/uL (0.0-1.1) Eosinophils # (Auto) 0.2 x10^3/uL (0.0-0.7) 0.1 x10^3/uL (0.0-0.7) Basophils # (Auto) 0.0 x10^3/uL (0.0-0.2) 0.0 x10^3/uL (0.0-0.2) Prothrombin Time 14.3 SEC (11.7-14.0) H 15.9 SEC (11.7-14.0) H Prothrombin Time INR 1.2 (0.8-1.1) H 1.3 (0.8-1.1) H Activated Partial Thromboplast Time 31 SEC (24-38) Sodium Level 135 mmol/L (136-145) L 134 mmol/L (136-145) L Potassium Level 3.8 mmol/L (3.5-5.1) 4.7 mmol/L (3.5-5.1) Chloride Level 99 mmol/L (98-107) 99 mmol/L (98-107) Carbon Dioxide Level 27 mmol/L (21-32) 24 mmol/L (21-32) Anion Gap 9 (6-14) 11 (6-14) Blood Urea Nitrogen 17 mg/dL (8-26) 30 mg/dL (8-26) H Creatinine 0.9 mg/dL (0.7-1.3) 1.3 mg/dL (0.7-1.3) Estimated GFR (Cockcroft-Gault) 79.6 52.1 BUN/Creatinine Ratio 19 (6-20) Glucose Level 129 mg/dL (70-99) H 163 mg/dL (70-99) H Calcium Level 8.5 mg/dL (8.5-10.1) 7.9 mg/dL (8.5-10.1) L Total Bilirubin 0.4 mg/dL (0.2-1.0) Aspartate Amino Transferase (AST) 15 U/L (15-37) Alanine Aminotransferase (ALT) 18 U/L (16-63) Alkaline Phosphatase 80 U/L (46-116) Total Protein 6.4 g/dL (6.4-8.2) Albumin 3.1 g/dL (3.4-5.0) L Albumin/Globulin Ratio 0.9 (1.0-1.7) L SARS-CoV-2 Antigen (Rapid) Negative (NEGATIVE) Laboratory Tests 05/29/20 11:12 05/30/20 08:35 Laboratory Tests 05/29/20 11:12 05/30/20 08:35 ECHOCARDIOGRAM ECHOCARDIOGRAM <Conclusion> The left ventricular systolic function is mildly impaired. The Ejection Fraction is 45%. Septal wall motion consistent with conduction abnormality. Transmitral Doppler flow pattern is Grade I-abnormal relaxation pattern. Mild mitral regurgitation. Mild tricuspid regurgitation with an estimated PAP of 20 mmHg. There is no evidence of significant pericardial effusion. DATE: 08/13/19 0941 STRESS TEST STRESS TEST Conclusion 1. Regadenoson cardioisotope stress test did not show any evidence of ischemia or infarct. 2. Abnormal septal wall motion with ejection fraction calculated at 48%. 3. Low risk for cardiac events. DATE: 08/20/18 1309 ASSESSMENT/PLAN ASSESSMENT/PLAN 1. Traumatic fall with right proximal femur fracture. S/p surgical intervention. POD #1. Tolerate procedure well. ? Dizziness, orthostatic hypotension contributing to fall 2. CAD s/p previous CABG; cath 04/21 with patent MCMILLAN to LAD, SVG to OM, and SVG to OM. Clinically stable. CP free 3. Orthostatic hypotension, post-operatively. 4. Ischemic cardiomyopathy; most recent echo with LVER 45%. appears compensated 5. H/o hypertension; BP low end 7. Hyperlipidemia; statin Recommendations Hold lisinopril, diuretics for now Will give fluid bolus Compression stockings Outpatient echo and consideration of ischemic evaluation. Supportive care ROME HASKINS MD 05/30/204: CARDIAC CONSULT ASSESSMENT/PLAN ASSESSMENT/PLAN Patient seen and examined. Agree with JIG BORE TOOL MAKER's assessment and plan s/p Mechanical fall without LOC presenting with right femur fracture s/p ORIF CAD s/p CABG stable Agree with IVF for orthostasis Continue post op care per ortho team Thank you for your consultation ANGELA RAGLAND APRN May 30, 2020 11:22 ROME HASKINS MD May 30, 2020 19:14
[2020-05-30] MEDS: CETIRIZINE HCL 10 MG TABLET. PO SCH (11:45)
[2020-05-30] MEDS: DOCUSATE SODIUM 100 MG CAPSULE. PO PRN ×2 (11:45→21:24)
[2020-05-30] MEDS: LACTOBACILLUS RHAMNOSUS GG 1 CAPSULE. PO SCH ×2 (11:46→21:24)
[2020-05-30] MEDS: CITALOPRAM 10 MG TABLET. PO SCH (11:46)
[2020-05-30] MEDS: PANTOPRAZOLE 40 MG TABLET.DR. PO SCH (11:46)
[2020-05-30 15:00] VITALS: BP 110/57
[2020-05-30] MEDS ORDERED: IV NORMAL SALINE 500ML BAG 500 ML IV ONE (15:00)
[2020-05-30] MEDS: IV NORMAL SALINE 1000ML BAG 1,000 ML IV SCH (15:37)
[2020-05-30 15:50] LABS: HEMOGLOBIN 9.6 g/dL (13.0-17.5)
[2020-05-30] MEDS ORDERED: BISACODYL 10 MG SUPP.RECT. PR PRN (16:00)
[2020-05-30] MEDS ORDERED: WARFARIN 4 MG TABLET. PO ONE (16:00)
--- NOTE | 2020-05-30 16:30 | NUR ---
pt has had 2 episodes of being diaphoretic, dizzy, pale, and lightheaded with movement, one at approx 0930 while standing with PT/OT and the other at approx 1400 while transferring to the chair with PT/OT. pt was experiencing orthostatic hypotension. cardiology notified, orders received, will continue to monitor.
--- NOTE | 2020-05-30 16:37 | NUR ---
pt has had very minimal output today of 100ml, bladder scanned pt and only 75ml showed retained in bladder, dr notified, bolus given, fluids to continue, encouraging fluids. will continue to monitor.
[2020-05-30 19:00] VITALS: BP 138/81
[2020-05-30] MEDS ORDERED: LISINOPRIL 20 MG TABLET PO SCH (21:00)
[2020-05-30] MEDS: GABAPENTIN 300 MG CAPSULE. PO SCH (21:24)
[2020-05-30 23:00] VITALS: BP 118/91
[2020-05-31] VITALS (7 sets, daily range): BP systolic 90–153; BP diastolic 34–72
[2020-05-31 05:21] LABS: CHOLESTEROL/HDL RATIO 2.6
[2020-05-31] MEDS: IV NORMAL SALINE 1000ML BAG 1,000 ML IV SCH ×2 (05:37→19:51)
[2020-05-31] MEDS: POLYETHYLENE GLYCOL 3350 17 GM PACKET. PO SCH (07:31)
[2020-05-31] MEDS: SENNOSIDES/DOCUSATE 8.6/50MG TABLET. PO SCH (07:31)
[2020-05-31] MEDS: LACTOBACILLUS RHAMNOSUS GG 1 CAPSULE. PO SCH ×2 (09:34→19:49)
[2020-05-31] MEDS: PANTOPRAZOLE 40 MG TABLET.DR. PO SCH (09:34)
[2020-05-31] MEDS: ENOXAPARIN 40 MG/0.4 ML SYRINGE. SQ SCH (09:34)
[2020-05-31] MEDS: CETIRIZINE HCL 10 MG TABLET. PO SCH (09:34)
[2020-05-31] MEDS: CITALOPRAM 10 MG TABLET. PO SCH (09:34)
[2020-05-31] MEDS: TRIAMTERENE/HCTZ 37.5/25MG TABLET. PO SCH (09:34)
--- NOTE | 2020-05-31 10:23 | PDOC ---
PROGRESS NOTES Date of Service DATE: 05/31/20 TIME: 10:19 Subjective Subjective Problems overnight: Right hip is a bit sore but feels a lot better than preoperatively, no other complaints Objective Vital Signs Vital Signs Date Time Temp Pulse Resp B/P (MAP) Pulse Ox O2 Delivery O2 Flow Rate FiO2 05/31/20 07:00 98.3 103 16 131/66 (87) 90 Room Air 98.3 05/31/20 03:00 2.0 Physical Exam On exam dressing was just changed this morning he had some slight serosanguineous drainage leg lengths are equal distal neurovascular status intact he has minimal swelling Labs Laboratory Tests Test 05/29/20 11:12 05/29/20 11:35 05/30/20 08:35 05/30/20 15:40 White Blood Count 5.0 x10^3/uL (4.0-11.0) 6.0 x10^3/uL (4.0-11.0) Red Blood Count 3.88 x10^6/uL (4.30-5.70) 3.02 x10^6/uL (4.30-5.70) Hemoglobin 13.1 g/dL (13.0-17.5) 10.4 g/dL (13.0-17.5) 9.6 g/dL (13.0-17.5) Hematocrit 38.0 % (39.0-53.0) 30.0 % (39.0-53.0) 28.0 % (39.0-53.0) Mean Corpuscular Volume 98 fL (79-100) 99 fL (79-100) Mean Corpuscular Hemoglobin 34 pg (25-35) 35 pg (25-35) Mean Corpuscular Hemoglobin Concent 35 g/dL (31-37) 35 g/dL (31-37) 34 g/dL (31-37) Red Cell Distribution Width 12.8 % (11.5-14.5) 12.8 % (11.5-14.5) Platelet Count 143 x10^3/uL (140-400) 132 x10^3/uL (140-400) Neutrophils (%) (Auto) 73 % (31-73) 78 % (31-73) Lymphocytes (%) (Auto) 17 % (24-48) 11 % (24-48) Monocytes (%) (Auto) 7 % (0-9) 10 % (0-9) Eosinophils (%) (Auto) 3 % (0-3) 1 % (0-3) Basophils (%) (Auto) 0 % (0-3) 0 % (0-3) Neutrophils # (Auto) 3.7 x10^3/uL (1.8-7.7) 4.7 x10^3/uL (1.8-7.7) Lymphocytes # (Auto) 0.8 x10^3/uL (1.0-4.8) 0.7 x10^3/uL (1.0-4.8) Monocytes # (Auto) 0.4 x10^3/uL (0.0-1.1) 0.6 x10^3/uL (0.0-1.1) Eosinophils # (Auto) 0.2 x10^3/uL (0.0-0.7) 0.1 x10^3/uL (0.0-0.7) Basophils # (Auto) 0.0 x10^3/uL (0.0-0.2) 0.0 x10^3/uL (0.0-0.2) Prothrombin Time 14.3 SEC (11.7-14.0) 15.9 SEC (11.7-14.0) Prothromb Time International Ratio 1.2 (0.8-1.1) 1.3 (0.8-1.1) Activated Partial Thromboplast Time 31 SEC (24-38) Sodium Level 135 mmol/L (136-145) 134 mmol/L (136-145) Potassium Level 3.8 mmol/L (3.5-5.1) 4.7 mmol/L (3.5-5.1) Chloride Level 99 mmol/L (98-107) 99 mmol/L (98-107) Carbon Dioxide Level 27 mmol/L (21-32) 24 mmol/L (21-32) Anion Gap 9 (6-14) 11 (6-14) Blood Urea Nitrogen 17 mg/dL (8-26) 30 mg/dL (8-26) Creatinine 0.9 mg/dL (0.7-1.3) 1.3 mg/dL (0.7-1.3) Estimated GFR (Cockcroft-Gault) 79.6 52.1 BUN/Creatinine Ratio 19 (6-20) Glucose Level 129 mg/dL (70-99) 163 mg/dL (70-99) Calcium Level 8.5 mg/dL (8.5-10.1) 7.9 mg/dL (8.5-10.1) Total Bilirubin 0.4 mg/dL (0.2-1.0) Aspartate Amino Transf (AST/SGOT) 15 U/L (15-37) Alanine Aminotransferase (ALT/SGPT) 18 U/L (16-63) Alkaline Phosphatase 80 U/L (46-116) Total Protein 6.4 g/dL (6.4-8.2) Albumin 3.1 g/dL (3.4-5.0) Albumin/Globulin Ratio 0.9 (1.0-1.7) Coronavirus (PCR) Not detected (Not Detected) SARS-CoV-2 Antigen (Rapid) Negative (NEGATIVE) Test 05/31/20 03:53 05/31/20 03:55 Thyroid Stimulating Hormone (TSH) 1.344 uIU/mL (0.358-3.74) Prothrombin Time 17.0 SEC (11.7-14.0) Prothromb Time International Ratio 1.4 (0.8-1.1) Triglycerides Level 79 mg/dL (0-150) Cholesterol Level 83 mg/dL (0-200) LDL Cholesterol, Calculated 35 mg/dL (0-100) VLDL Cholesterol, Calculated 16 mg/dL (0-40) Non-HDL Cholesterol Calculated 51 mg/dL (0-129) HDL Cholesterol 32 mg/dL (40-60) Cholesterol/HDL Ratio 2.6 Laboratory Tests Test 05/30/20 15:40 05/31/20 03:53 05/31/20 03:55 Hemoglobin 9.6 g/dL (13.0-17.5) Hematocrit 28.0 % (39.0-53.0) Mean Corpuscular Hemoglobin Concent 34 g/dL (31-37) Thyroid Stimulating Hormone (TSH) 1.344 uIU/mL (0.358-3.74) Prothrombin Time 17.0 SEC (11.7-14.0) Prothromb Time International Ratio 1.4 (0.8-1.1) Triglycerides Level 79 mg/dL (0-150) Cholesterol Level 83 mg/dL (0-200) LDL Cholesterol, Calculated 35 mg/dL (0-100) VLDL Cholesterol, Calculated 16 mg/dL (0-40) Non-HDL Cholesterol Calculated 51 mg/dL (0-129) HDL Cholesterol 32 mg/dL (40-60) Cholesterol/HDL Ratio 2.6 Imaging Intraoperative views of the hip fracture show excellent reduction with intact hardware placement of an intramedullary fracture fixation device Assessment Assessment POD#2 ORIF intertrochanteric right hip fracture Plan Plan of Care He is doing very well presently. Continue to mobilize partial weightbearing with 50% on the right hip no hip precautions necessary Coumadin anticoagulation to continue planned 6 weeks postoperatively Placement when medically stable Patient should be on hospitalist service, discussed with Dr. Hart who agreed and also I passed on to the nurse to change orders accordingly Justicifation of Admission Dx: Justifications for Admission: Justification of Admission Dx: Yes Fracture: Fracture PHU ESQUIVEL MD May 31, 2020 10:22
--- NOTE | 2020-05-31 11:59 | PDOC ---
[facility] PROGRESS NOTE Date of Service DOS: DATE: 05/31/20 TIME: 11:57 Chief Complaint Chief Complaint Postop day 2 ORIF hip fracture History of coronary artery disease status post CABG currently asymptomatic Essential hypertension History of reflux disease Hyponatremia secondary to pain mediated response most likely History of Present Illness History of Present Illness 05/31/2020 Patient seen and examined Discussed with RN Chart reviewed Discussed with his daughter as well She would really like to get him home instead of penitentiary Vitals/I&O Vitals/I&O: Vital Signs Date Time Temp Pulse Resp B/P (MAP) Pulse Ox O2 Delivery O2 Flow Rate FiO2 05/31/20 08:00 Room Air 05/31/20 07:00 98.3 103 16 131/66 (87) 90 98.3 05/31/20 03:00 2.0 I & O 05/30/20 05/30/20 05/31/20 14:59 22:59 06:59 Intake Total 230 ml 500 ml 800 ml Output Total 100 ml 350 ml Balance 130 ml 500 ml 450 ml Physical Exam General: Alert, Oriented X3, Cooperative, No acute distress Heart: Regular rate (not on tele) Lungs: Clear Abdomen: Soft, No tenderness Extremities: No edema, Normal pulses Skin: No significant lesion Labs Labs: Laboratory Tests Test 05/30/20 15:40 05/31/20 03:53 05/31/20 03:55 Hemoglobin 9.6 g/dL (13.0-17.5) Hematocrit 28.0 % (39.0-53.0) Mean Corpuscular Hemoglobin Concent 34 g/dL (31-37) Thyroid Stimulating Hormone (TSH) 1.344 uIU/mL (0.358-3.74) Prothrombin Time 17.0 SEC (11.7-14.0) Prothromb Time International Ratio 1.4 (0.8-1.1) Triglycerides Level 79 mg/dL (0-150) Cholesterol Level 83 mg/dL (0-200) LDL Cholesterol, Calculated 35 mg/dL (0-100) VLDL Cholesterol, Calculated 16 mg/dL (0-40) Non-HDL Cholesterol Calculated 51 mg/dL (0-129) HDL Cholesterol 32 mg/dL (40-60) Cholesterol/HDL Ratio 2.6 Assessment and Plan Assessmemt and Plan Problems Medical Problems: (1) Intertrochanteric fracture of right hip Status: Acut Postop day 2 ORIF right hip Displaced right intertrochanteric hip fracture History of coronary artery disease status post CABG currently asymptomatic Essential hypertension History of reflux disease Hyponatremia secondary to pain mediated response most likely Plan Wound care PRN pain meds PT OT DVT prophylaxis Full code Discharge disposition pending I recommend penitentiary but his daughter does not want it Comment Review of Relevant I have reviewed the following items nabor (where applicable) has been applied. Medications: Current Medications Medications (Trade) Dose Ordered Sig/Ginny Route PRN Reason Start Time Stop Time Status Last Admin Dose Admin Warfarin Sodium (Coumadin Per Pharmacy) 1 each PRN DAILY PRN MC SEE COMMENTS 05/30/20 15:45 05/30/20 10:43 Gabapentin (Neurontin) 300 mg HS PO 05/30/20 21:00 05/30/20 21:24 Warfarin Sodium (Coumadin) 4 mg 1X WARF ONCE PO 05/30/20 16:00 05/30/20 16:01 DC 05/30/20 15:40 Sodium Chloride 500 ml @ 500 mls/hr 1X ONCE IV 05/30/20 15:00 05/30/20 15:59 DC 05/30/20 14:58 KADE CONTRERAS III DO May 31, 2020 11:59
--- NOTE | 2020-05-31 13:23 | NUR ---
Pharmacy Warfarin Dosing Note S:Pharmacy consulted to assist with anticoagulation therapy started with target INR: 1.6 - 2.5 O:YANIQUE FOX is a 89 year old M with Hip Fracture LABS: Last INR: 1.4 Last HGB: 10.4 Last HCT: 30 Last PLT: 132 Last dose of 7.5 mg given on 05/30/20 at 1932 Previous Regimen: Vitamin K given: Drug Interaction Changes: Same Interacting Drug Ongoing Drug Interactions: citalopram A:INR of 1.4 is below desired range. Target range for this patient is: 1.6 - 2.5 P: Warfarin dose: 4 mg Today at 1600 Bridge Therapy: Enoxaparin 40 mg q24h Next INR due IN AM Pharmacy anticoagulation service will continue to follow. SAURAV DUMONT Oksana, 05/31/20 [id number]
[2020-05-31] MEDS: oxyCODONE IR 5 MG TABLET PO PRN (14:51)
[2020-05-31] MEDS ORDERED: WARFARIN 4 MG TABLET. PO ONE (16:00)
--- NOTE | 2020-05-31 16:02 | PDOC ---
ANGELA RAGLAND OFFSET PRINTING OPERATOR 05/31/20 1602: CARDIO Progress Notes Date and Time Date of Service 05/31/20 Time of Evaluation 1420 Subjective Subjective: No Chest Pain, No shortness of breath, Other (drowsy from Ambien last night. No significant dizziness when working with PT today. ) Vitals Vitals Vital Signs Date Time Temp Pulse Resp B/P (MAP) Pulse Ox O2 Delivery O2 Flow Rate FiO2 05/31/20 15:52 16 Room Air 05/31/20 15:00 98.3 93 90/42 (58) 95 2.0 98.3 Weight Weight [ ] Input and Output Intake and Output Intake and Output 05/31/20 07:00 Intake Total 1530 ml Output Total 450 ml Balance 1080 ml Intake Oral 980 ml IV Total 550 ml Output Urine Total 450 ml # Voids 1 # Bowel Movements 2 Laboratory Labs Laboratory Tests Test 05/31/20 03:53 05/31/20 03:55 Thyroid Stimulating Hormone (TSH) 1.344 uIU/mL (0.358-3.74) Prothrombin Time 17.0 SEC (11.7-14.0) Prothromb Time International Ratio 1.4 (0.8-1.1) Triglycerides Level 79 mg/dL (0-150) Cholesterol Level 83 mg/dL (0-200) LDL Cholesterol, Calculated 35 mg/dL (0-100) VLDL Cholesterol, Calculated 16 mg/dL (0-40) Non-HDL Cholesterol Calculated 51 mg/dL (0-129) HDL Cholesterol 32 mg/dL (40-60) Cholesterol/HDL Ratio 2.6 Physical Exam HEENT: Neck Supple W Full Motion Chest: Symmetric LUNGS: Clear to Auscultation Heart: RRR (heart tones regular. Not on tele.) Abdomen: Soft N/T Extremities: Other (1+ bilateral LE edema ) Neurology: alert, oriented, follow commands, other (drowsy ) Assessment Assessment 1. Traumatic mechanical fall with right proximal femur fracture. S/p ORIF. POD #2. Tolerate procedure well. 2. CAD s/p previous CABG; cath 04/21 with patent MCMILLAN to LAD, SVG to OM, and SVG to OM. Clinically stable. CP free 3. Orthostatic hypotension, post-operatively. improved with IVFs 4. Ischemic cardiomyopathy; most recent echo with LVER 45%. clinically compensated 5. H/o hypertension; BP remains low end 7. Hyperlipidemia; statin Recommendations Continue IVF overnight. Repeat orthos Hold lisinopril, diuretics for now Compression stockings Outpatient echo and consideration of ischemic evaluation. Supportive care Justicifation of Admission Dx: Justifications for Admission: Justification of Admission Dx: Yes Fracture: Fracture ROME HASKINS MD 05/31/20 1634: CARDIO Progress Notes Assessment Assessment Patient seen and examined. Agree with TURNSTILE ATTENDANT's assessment and plan. Orthostasis improved with intravenous hydration. Chronic systolic heart failure clinically well compensated. CAD s/p CABG stable. s/p ORIF right femur fracture, continue postop care per orthopedics team. ANGELA RAGLAND APRN May 31, 2020 16:02 ROME HASKINS MD May 31, 2020 16:34
[2020-05-31] MEDS: GABAPENTIN 300 MG CAPSULE. PO SCH (19:49)
[2020-06-01] VITALS (14 sets, daily range): BP systolic 94–143; BP diastolic 47–75
[2020-06-01 05:54] LABS: BASO % 0 % (0-3); EOS # 0.1 x10^3/uL (0.0-0.7); EOS % 1 % (0-3); LYMPH # 0.4 x10^3/uL (1.0-4.8); LYMPH % 7 % (24-48); MEAN CORPUSCULAR HEMOGLOBIN 35 pg (25-35); MEAN CORPUSCULAR HGB CONC 35 g/dL (31-37); MEAN CORPUSCULAR VOLUME 99 fL (79-100); MONO # 0.6 x10^3/uL (0.0-1.1); MONO % 10 % (0-9); NEUT # 5.1 x10^3/uL (1.8-7.7); NEUT % 82 % (31-73); PLATELET COUNT 85 x10^3/uL (140-400); RED BLOOD COUNT 1.94 x10^6/uL (4.30-5.70); RED CELL DISTRIBUTION WIDTH 12.9 % (11.5-14.5); WHITE BLOOD COUNT 6.2 x10^3/uL (4.0-11.0)
[2020-06-01 05:59] LABS: CALCIUM 7.7 mg/dL (8.5-10.1); CREATININE 1.4 mg/dL (0.7-1.3); GFR 47.8; PHOSPHORUS 4.1 mg/dL (2.6-4.7); POTASSIUM 3.8 mmol/L (3.5-5.1)
[2020-06-01 06:58] LABS: HEMATOCRIT 19.1 % (39.0-53.0); HEMOGLOBIN 6.7 g/dL (13.0-17.5)
[2020-06-01 07:24] LABS: PROTHROMBIN TIME PATIENT 21.5 SEC (11.7-14.0)
[2020-06-01] MEDS: POLYETHYLENE GLYCOL 3350 17 GM PACKET. PO SCH (08:30)
[2020-06-01] MEDS: CITALOPRAM 10 MG TABLET. PO SCH (08:30)
[2020-06-01] MEDS: SENNOSIDES/DOCUSATE 8.6/50MG TABLET. PO SCH (08:30)
[2020-06-01] MEDS: LACTOBACILLUS RHAMNOSUS GG 1 CAPSULE. PO SCH ×2 (08:30→21:11)
[2020-06-01] MEDS: ENOXAPARIN 40 MG/0.4 ML SYRINGE. SQ SCH (08:30)
[2020-06-01] MEDS: CETIRIZINE HCL 10 MG TABLET. PO SCH (08:30)
[2020-06-01] MEDS: PANTOPRAZOLE 40 MG TABLET.DR. PO SCH (08:30)
[2020-06-01] MEDS: IV NORMAL SALINE 1000ML BAG 1,000 ML IV SCH ×2 (08:40→22:00)
--- NOTE | 2020-06-01 08:58 | PDOC ---
[facility] [facility] PROGRESS NOTE Date of Service DOS: DATE: 06/01/20 TIME: 08:51 Chief Complaint Chief Complaint Postop day 3 ORIF hip fracture History of coronary artery disease status post CABG currently asymptomatic Essential hypertension History of reflux disease Hyponatremia secondary to pain mediated response most likely History of Present Illness History of Present Illness 06/01/2020 Patient seen and examined Discussed with RN Reviewed chart Hemoglobin low so gave 1 unit of prbc Discharge to SNU tomorrow if hemoglobin is stable 05/31/2020 Patient seen and examined Discussed with RN Chart reviewed Discussed with his daughter as well She would really like to get him home instead of residential Vitals/I&O Vitals/I&O: Vital Signs Date Time Temp Pulse Resp B/P (MAP) Pulse Ox O2 Delivery O2 Flow Rate FiO2 06/01/20 07:00 97.9 94 18 107/52 (70) 90 Nasal Cannula 2.0 97.9 I & O 05/31/20 05/31/20 06/01/20 15:00 23:00 07:00 Intake Total 3000 ml 400 ml Output Total 500 ml Balance 2500 ml 400 ml Physical Exam General: Alert, Oriented X3, Cooperative, No acute distress Heart: Regular rate (not on tele) Lungs: Clear Abdomen: Soft, No tenderness Extremities: No edema, Normal pulses Skin: No significant lesion Labs Labs: Laboratory Tests Test 06/01/20 04:50 White Blood Count 6.2 x10^3/uL (4.0-11.0) Red Blood Count 1.94 x10^6/uL (4.30-5.70) Hemoglobin 6.7 g/dL (13.0-17.5) Hematocrit 19.1 % (39.0-53.0) Mean Corpuscular Volume 99 fL (79-100) Mean Corpuscular Hemoglobin 35 pg (25-35) Mean Corpuscular Hemoglobin Concent 35 g/dL (31-37) Red Cell Distribution Width 12.9 % (11.5-14.5) Platelet Count 85 x10^3/uL (140-400) Neutrophils (%) (Auto) 82 % (31-73) Lymphocytes (%) (Auto) 7 % (24-48) Monocytes (%) (Auto) 10 % (0-9) Eosinophils (%) (Auto) 1 % (0-3) Basophils (%) (Auto) 0 % (0-3) Neutrophils # (Auto) 5.1 x10^3/uL (1.8-7.7) Lymphocytes # (Auto) 0.4 x10^3/uL (1.0-4.8) Monocytes # (Auto) 0.6 x10^3/uL (0.0-1.1) Eosinophils # (Auto) 0.1 x10^3/uL (0.0-0.7) Basophils # (Auto) 0.0 x10^3/uL (0.0-0.2) Prothrombin Time 21.5 SEC (11.7-14.0) Prothromb Time International Ratio 1.9 (0.8-1.1) Sodium Level 133 mmol/L (136-145) Potassium Level 3.8 mmol/L (3.5-5.1) Chloride Level 98 mmol/L (98-107) Carbon Dioxide Level 26 mmol/L (21-32) Anion Gap 9 (6-14) Blood Urea Nitrogen 44 mg/dL (8-26) Creatinine 1.4 mg/dL (0.7-1.3) Estimated GFR (Cockcroft-Gault) 47.8 Glucose Level 142 mg/dL (70-99) Calcium Level 7.7 mg/dL (8.5-10.1) Phosphorus Level 4.1 mg/dL (2.6-4.7) Magnesium Level 2.0 mg/dL (1.8-2.4) Review of Systems Review of Systems: Denies pain Denies weakness Assessment and Plan Assessmemt and Plan Problems Medical Problems: (1) Intertrochanteric fracture of right hip Status: Acute Assessment Postop day 3 ORIF right hip Displaced right intertrochanteric hip fracture History of coronary artery disease status post CABG currently asymptomatic Essential hypertension History of reflux disease Hyponatremia secondary to pain mediated response most likely Plan Gave 1 unit of prbc Trend hemoglobin Wound care PRN pain meds DVT prophylaxis DNR Discharge to SNU tomorrow if hemoglobin is stable Comment Review of Relevant I have reviewed the following items nabor (where applicable) has been applied. Medications: Current Medications Medications (Trade) Dose Ordered Sig/Ginny Route PRN Reason Start Time Stop Time Status Last Admin Dose Admin Warfarin Sodium (Coumadin) 4 mg 1X WARF ONCE PO 05/31/20 16:00 05/31/20 16:01 DC 8/25/20 16:33 KADE CONTRERAS III DO Jun 01, 2020 08:58
--- NOTE | 2020-06-01 11:00 | PDOC ---
ANGELA RAGLAND MAX 06/01/20 1100: CARDIO Progress Notes Date and Time Date of Service 06/01/20 Time of Evaluation 1100 Subjective Subjective: No Chest Pain, No shortness of breath, Other (sleepy ) Vitals Vitals Vital Signs Date Time Temp Pulse Resp B/P (MAP) Pulse Ox O2 Delivery O2 Flow Rate FiO2 06/01/20 07:00 97.9 94 18 107/52 (70) 90 Nasal Cannula 2.0 97.9 Weight Weight [ ] Input and Output Intake and Output Intake and Output 06/01/20 06:59 Intake Total 3400 ml Output Total 500 ml Balance 2900 ml Intake Oral 400 ml IV Total 3000 ml Output Urine Total 500 ml # Voids 4 # Bowel Movements 1 Laboratory Labs Laboratory Tests Test 06/01/20 04:50 White Blood Count 6.2 x10^3/uL (4.0-11.0) Red Blood Count 1.94 x10^6/uL (4.30-5.70) Hemoglobin 6.7 g/dL (13.0-17.5) Hematocrit 19.1 % (39.0-53.0) Mean Corpuscular Volume 99 fL (79-100) Mean Corpuscular Hemoglobin 35 pg (25-35) Mean Corpuscular Hemoglobin Concent 35 g/dL (31-37) Red Cell Distribution Width 12.9 % (11.5-14.5) Platelet Count 85 x10^3/uL (140-400) Neutrophils (%) (Auto) 82 % (31-73) Lymphocytes (%) (Auto) 7 % (24-48) Monocytes (%) (Auto) 10 % (0-9) Eosinophils (%) (Auto) 1 % (0-3) Basophils (%) (Auto) 0 % (0-3) Neutrophils # (Auto) 5.1 x10^3/uL (1.8-7.7) Lymphocytes # (Auto) 0.4 x10^3/uL (1.0-4.8) Monocytes # (Auto) 0.6 x10^3/uL (0.0-1.1) Eosinophils # (Auto) 0.1 x10^3/uL (0.0-0.7) Basophils # (Auto) 0.0 x10^3/uL (0.0-0.2) Prothrombin Time 21.5 SEC (11.7-14.0) Prothromb Time International Ratio 1.9 (0.8-1.1) Sodium Level 133 mmol/L (136-145) Potassium Level 3.8 mmol/L (3.5-5.1) Chloride Level 98 mmol/L (98-107) Carbon Dioxide Level 26 mmol/L (21-32) Anion Gap 9 (6-14) Blood Urea Nitrogen 44 mg/dL (8-26) Creatinine 1.4 mg/dL (0.7-1.3) Estimated GFR (Cockcroft-Gault) 47.8 Glucose Level 142 mg/dL (70-99) Calcium Level 7.7 mg/dL (8.5-10.1) Phosphorus Level 4.1 mg/dL (2.6-4.7) Magnesium Level 2.0 mg/dL (1.8-2.4) Physical Exam HEENT: Neck Supple W Full Motion Chest: Symmetric LUNGS: Clear to Auscultation Heart: RRR (heart tones regular. Not on tele.) Abdomen: Soft N/T Extremities: Other (1+ bilateral LE edema ) Neurology: alert, oriented, follow commands, other (drowsy ) Assessment Assessment 1. Traumatic mechanical fall with right proximal femur fracture. S/p ORIF. POD #2. Tolerate procedure well. 2. CAD s/p previous CABG; cath 04/21 with patent MCMILLAN to LAD, SVG to OM, and SVG to OM. Clinically stable. CP free 3. Orthostatic hypotension, post-operatively. improved with IVFs 4. Ischemic cardiomyopathy; most recent echo with LVER 45%. clinically compensated 5. H/o hypertension; BP remains low end 6. Hyperlipidemia; statin 7. Anemia, postop. hgb 6.7. being transfused Recommendations Continue to hold lisinopril, diuretics for now with hypotension Compression stockings Outpatient echo and consideration of ischemic evaluation. Supportive care Justicifation of Admission Dx: Justifications for Admission: Justification of Admission Dx: Yes Fracture: Fracture ROME HASKINS MD 06/01/201911: CARDIO Progress Notes Assessment Assessment Patient seen and examined. Agree with ACUTE CARE PHYSICIAN's assessment and plan. Orthostasis improved with intravenous hydration. Chronic systolic heart failure clinically well compensated. CAD s/p CABG stable. s/p ORIF right femur fracture, continue postop care per orthopedics team. Continue to hold lisinopril ANGELA RAGLAND APRN Jun 01, 2020 11:00 ROME HASKINS MD Jun 01, 2020 19:12
--- NOTE | 2020-06-01 11:12 | NUR ---
Pharmacy Warfarin Dosing Note S:Pharmacy consulted to assist with anticoagulation therapy started with target INR: 1.6 - 2.5 O:YANIQUE FOX is a 89 year old M with Hip Fracture LABS: Last INR: 1.9 Last HGB: 6.7 Last HCT: 19.1 Last PLT: 85 Last dose of 4 mg given on 05/31/20 at 1932 Previous Regimen: Vitamin K given: Drug Interaction Changes: Same Interacting Drug Ongoing Drug Interactions: citalopram 06/01 PT GETTING 1 UNIT PRBC TODAY A:INR of 1.9 is within desired range. Target range for this patient is: 1.6 - 2.5 P: Warfarin dose: 2 mg Today at 1600 Bridge Therapy: NONE Next INR due TOMORROW. Pharmacy anticoagulation service will continue to follow. MEIR BROWN RPH, 06/01/20 0816
[2020-06-01] MEDS: oxyCODONE IR 5 MG TABLET PO PRN (13:54)
[2020-06-01] MEDS ORDERED: WARFARIN 2 MG TABLET. PO ONE (16:00)
[2020-06-01] MEDS: GABAPENTIN 300 MG CAPSULE. PO SCH (21:11)
[2020-06-02 03:00] VITALS: BP 121/55
[2020-06-02 06:00] LABS: BASO % 0 % (0-3); EOS # 0.4 x10^3/uL (0.0-0.7); EOS % 10 % (0-3); HEMATOCRIT 22.1 % (39.0-53.0); HEMOGLOBIN 7.6 g/dL (13.0-17.5); LYMPH # 0.6 x10^3/uL (1.0-4.8); LYMPH % 14 % (24-48); MEAN CORPUSCULAR HEMOGLOBIN 33 pg (25-35); MEAN CORPUSCULAR HGB CONC 34 g/dL (31-37); MEAN CORPUSCULAR VOLUME 96 fL (79-100); MONO # 0.5 x10^3/uL (0.0-1.1); MONO % 11 % (0-9); NEUT # 2.8 x10^3/uL (1.8-7.7); NEUT % 64 % (31-73); PLATELET COUNT 108 x10^3/uL (140-400); RED BLOOD COUNT 2.29 x10^6/uL (4.30-5.70); RED CELL DISTRIBUTION WIDTH 13.9 % (11.5-14.5); WHITE BLOOD COUNT 4.3 x10^3/uL (4.0-11.0)
[2020-06-02 06:50] LABS: CALCIUM 7.5 mg/dL (8.5-10.1); CREATININE 1.1 mg/dL (0.7-1.3); GFR 63.2
[2020-06-02 07:00] VITALS: BP 140/74
[2020-06-02] MEDS: CITALOPRAM 10 MG TABLET. PO SCH (08:27)
[2020-06-02] MEDS: PANTOPRAZOLE 40 MG TABLET.DR. PO SCH (08:27)
[2020-06-02] MEDS: LACTOBACILLUS RHAMNOSUS GG 1 CAPSULE. PO SCH (08:27)
[2020-06-02] MEDS: oxyCODONE IR 5 MG TABLET PO PRN (08:28)
[2020-06-02] MEDS: POLYETHYLENE GLYCOL 3350 17 GM PACKET. PO SCH (08:28)
[2020-06-02] MEDS: CETIRIZINE HCL 10 MG TABLET. PO SCH (08:28)
[2020-06-02] MEDS: SENNOSIDES/DOCUSATE 8.6/50MG TABLET. PO SCH (08:28)
--- NOTE | 2020-06-02 09:10 | PDOC ---
PROGRESS NOTES Date of Service: DATE: 06/02/20 TIME: 09:10 Chief Complaint Chief Complaint IMPRESSION Postop day 4 ORIF hip fracture History of coronary artery disease status post CABG currently asymptomatic CAD s/p previous CABG; cath 04/21 with patent MCMILLAN to LAD, SVG to OM, and SVG to OM. Clinically stable. CP free Orthostatic hypotension, post-operatively. improved with IVFs Ischemic cardiomyopathy; most recent echo with LVER 45%. clinically compensated Essential hypertension History of reflux disease Hyponatremia secondary to pain mediated response most likely MARKED POST OP ANEMIA plan GI CONSULT AM H/H GUIAC STOOLS Discharge Recommendations * [facility]sp Unit History of Present Illness History of Present Illness 06/02/2020 Patient seen and examined Discussed with RN Reviewed chart Hemoglobin low //1 unit of prbc 06/01 Discharge to SNU if hemoglobin is stable gi consult am labs OCCULT STOOLS PO PROTONIX 40 MIN pt exam, chart review, > 50% of time spent with exam, chart review, pt care coordination 05/31/2020 Patient seen and examined Discussed with RN Chart reviewed Discussed with his daughter as well She would really like to get him home instead of [facility] Vitals Vitals Vital Signs Date Time Temp Pulse Resp B/P (MAP) Pulse Ox O2 Delivery O2 Flow Rate FiO2 06/02/20 08:28 Nasal Cannula 2.0 06/02/20 07:00 97.5 69 18 140/74 (96) 95 97.5 Physical Exam Physical Exam PLAYING CARDS IN ROOM WITH DAUGHTER General: Alert, Oriented X3, Cooperative, No acute distress Heart: Regular rate (not on tele), Normal S1 Lungs: Clear Abdomen: Normal bowel sounds, Soft, No tenderness Extremities: No cyanosis, No edema, Normal pulses Skin: No significant lesion Labs LABS INTERPRETATION Stress EKG Conclusion: Baseline EKG showed sinus rhythm with LBBB. Non diagnostic changes at peak stress. No arrhythmias. Imaging Protocol IMAGE PROTOCOL: Rest Tc-99m/stress Tc-99m 1 day Rest: Stress: Viability: Radiopharm. Tc99m Sestamibi Tc99m Sestamibi Dose 12mCi 33mCi Duration 13min. 13min. Img Date 08/20/2018 08/20/2018 Inj-Img Time 60min. 60min. Rest Admin Site: IV - Left Antecubital Dairy Products Maker: RT Rafiq (R)(N) Stress Admin Site: IV - Left Antecubital Dairy Products Maker: RT Rafiq (R)(N) STRESS DATA End Diast. Vol. 174.0ml LVEDV index BSA 84.0ml End Syst. Vol. 91.0ml LVESV index BSA 44.0ml Myocardial Mass 193.0g Eject. Fraction 48.0% Stress Scores Regional WT 0.00 Summed WT 23.00 Regional WM 0.00 Summed WM 24.00 LV Perfusion Scintigraphic images did not show any significant fixed or reversible defects. Wall Motion Abnormal septal wall motion with ejection fraction calculated at 48%. LV Perf. Quant 17 Seg. SSS 5.00 17 Seg. SRS 15.00 17 Seg. SDS 0.00 Stress Defect Extent (% LAD) 1.30 Rest Defect Extent (% LAD) 43.10 Rev. Defect Extent (% LAD) 0.00 Stress Defect Extent (% LCX) 12.50 Rest Defect Extent (% LCX) 17.50 Rev. Defect Extent (% LCX) 0.00 Stress Defect Extent (% RCA) 2.20 Rest Defect Extent (% RCA) 37.80 Rev. Defect Extent (% RCA) 0.00 Stress Defect Extent (% JENNIFER) 7.40 Rest Defect Extent (% JENNIFER) 36.70 Rev. Defect Extent (% JENNIFER) 0.00 Conclusion 1. Regadenoson cardioisotope stress test did not show any evidence of ischemia or infarct. 2. Abnormal septal wall motion with ejection fraction calculated at 48%. 3. Low risk for cardiac events. Signed by : Conrado Corrigan, Electronically Approved : 08/20/2018 13:09:37 Laboratory Tests Test 06/02/20 05:11 White Blood Count 4.3 x10^3/uL (4.0-11.0) Red Blood Count 2.29 x10^6/uL (4.30-5.70) Hemoglobin 7.6 g/dL (13.0-17.5) Hematocrit 22.1 % (39.0-53.0) Mean Corpuscular Volume 96 fL (79-100) Mean Corpuscular Hemoglobin 33 pg (25-35) Mean Corpuscular Hemoglobin Concent 34 g/dL (31-37) Red Cell Distribution Width 13.9 % (11.5-14.5) Platelet Count 108 x10^3/uL (140-400) Neutrophils (%) (Auto) 64 % (31-73) Lymphocytes (%) (Auto) 14 % (24-48) Monocytes (%) (Auto) 11 % (0-9) Eosinophils (%) (Auto) 10 % (0-3) Basophils (%) (Auto) 0 % (0-3) Neutrophils # (Auto) 2.8 x10^3/uL (1.8-7.7) Lymphocytes # (Auto) 0.6 x10^3/uL (1.0-4.8) Monocytes # (Auto) 0.5 x10^3/uL (0.0-1.1) Eosinophils # (Auto) 0.4 x10^3/uL (0.0-0.7) Basophils # (Auto) 0.0 x10^3/uL (0.0-0.2) Sodium Level 133 mmol/L (136-145) Potassium Level 3.0 mmol/L (3.5-5.1) Chloride Level 99 mmol/L (98-107) Carbon Dioxide Level 26 mmol/L (21-32) Anion Gap 8 (6-14) Blood Urea Nitrogen 37 mg/dL (8-26) Creatinine 1.1 mg/dL (0.7-1.3) Estimated GFR (Cockcroft-Gault) 63.2 Glucose Level 99 mg/dL (70-99) Calcium Level 7.5 mg/dL (8.5-10.1) Assessment and Plan Assessmemt and Plan Problems Medical Problems: (1) Intertrochanteric fracture of right hip Status: Acute Visit Type * Treatment Attempted Visit Details * Pt had transfusion this AM and RN oked treatment for PM. On arrival to room pt requesting to use commode. Relevant History * Fall, right hip fracture PMH: L NATALYA by Dr. Cavazos ~3 years ago, CHF, GERD, hypertension, hyperlipidemia, appendectomy, coronary bypass surgery, hernia repair. Surgical procedure * ORIF with IM fixation Surgical procedure date * May 29, 2020 PT/BABY DOCTOR * Sigrid Crooks PT Usual Living Arrangement * Alone Home Environment Type * House Physical Barriers in Home Environment * Tub-Shower * One Stair Railing * Shower * Greater than 4 steps ADL Assistance Required Prior to Admission * Independent ADL Assistive Devices Used Prior to Admission * Hand-held shower * Sock Aide * Grab bars in shower * Television Engineer * Raised toilet -no armrest * Transfer Tub Bench * Long Handle Equipment Mobility Assistance Required Prior to Admission * Independent Mobility devices used prior to admission * Four Wheeled Walker Other Information - PLOF Mobility * has RW (does not typically use) Patient's IADLs Prior to Admission * Driving * Laundry * Shopping * Meal preparation Other Prior Level of Function Information * PLOF from EMR and verified by pt. Pt states he is I with self care and mobility. Pt reports he has a tub shower upstairs, walk-in shower in his basement, however due to his hip pain he has not been going down stairs to shower and has been sponge bathing. Pt has someone cleaning his house recently. Weight Bearing Status * Partial Weight Bearing Weight Bearing Location * Right Lower Extremity Other Precautions * 50% weightbearing on R LE; no hip precautions Level of Consciousness * Alert Behavior * Cooperative Safety/Judgement * Decreased Safety * Due to Medical Status Activity Tolerance * Poor + Activity Tolerance/ Vitals * BP stable with activity today from 120/50s in bed to 140/60s following transfer to chair Sitting Balance * 3+ balances w/o UEs >30s. Standing Balance * 2 balances w/ both UEs Pain Score * 5 Pain Scale Type * Numeric Pain Location * R LE Pain Quality * Aching Pain Intervention * Exercise * Positioning * Relaxation * Rest * RN Notified PT PAIN COMMENTS * No pain at rest and increased pain with movement Supine to Sit Assistance Required * Mod Assistance * Two-Person Assistance Bed Mobility Comments * verbal and tactile cues for technique. Transfer Assistance Required * Mod Assistance Transfer Type * Sit to Stand Transfer Assistive Device * Roller Walker Transfer Comments * Verbal cues for hand placement when standing from chair. Patient able to maintain weightbearing with verbal cues. Ambulation Assistance Required * Min Assistance Ambulation Assistive Device * Roller Walker Ambulation Distance * 5-6 steps ffrom bed to BSC and BSC to recliner Gait Impairments * Antalgic * Slow Lisa * Step-To Gait * Short Step Length * Decreased Foot Clearance Ambulation Comments * Patient needing assist with manuevering roller walker and advancing L LE due to pain. Patient needing verbal cues for sequencing of roller walker and gait and UE support when advancing LLE. Sitting Exercises * Ankle Pumps * Hip Abduction * Long Arc Quads * Marching * Glut Sets * Pillow Squeeze Sitting Exercises Comments * 15 reps Other Information * Continued rehab efforts needed to progress patient towards goals of functional independence. Learning Preferences * One-on-One Instruction * Group Instruction * Audio * Demonstration Problem List (body system elements) * Impaired fnctnl mobility * Heart Rate * Blood Pressure * Balance * Respiration/perfusion * Age * Knowledge-safe techniques * Skin Integrity Pt/caregiver agrees with plan of care/goals * Yes Patient condition at conclusion of therapy * Pt in chair * Call light in reach * Phone in reach * PtIn no apparent distress * Pt denies further needs * Visitor with patient Communicated Patient Care With (Name, Title) * Gail RN; Tosin AMOR Goal 1 - Bed Mobility Assistance Required * Independent Goal 1 Assessment * Appropriate - Continue Goal 2 - Transfers Assistance Required * Independent Goal 2 - Transfer Type * Sit to Stand Goal 2 Assessment * Appropriate - Continue Goal 3 - Ambulation Assistance Required * Independent Goal 3 - Ambulation Distance * 250' Goal 3 - Ambulation Device * Roller Walker Goal 3 Assessment * Appropriate - Continue Goal 4 - Stairs Assistance Required * Independent Goal 4 - Number of Stairs * 2-4 Goal 4 - Device on Stairs * Rail on Right * Rail on Left Goal 4 Assessment * Appropriate - Continue Treatment Plan * Therapeutic Exercise * Bed Mobility Training * Transfer training * Gait Training * Body Mechanics Training * Dynamic Balance Training Frequency of Treatment Expected * 12 visits/week Duration of Treatment Expected * 2 weeks Discharge Recommendations * Usp Unit Comment Review of Relevant I have reviewed the following items nabor (where applicable) has been applied. Labs Laboratory Tests Test 06/01/20 04:50 06/02/20 05:11 White Blood Count 6.2 x10^3/uL (4.0-11.0) 4.3 x10^3/uL (4.0-11.0) Red Blood Count 1.94 x10^6/uL (4.30-5.70) 2.29 x10^6/uL (4.30-5.70) Hemoglobin 6.7 g/dL (13.0-17.5) 7.6 g/dL (13.0-17.5) Hematocrit 19.1 % (39.0-53.0) 22.1 % (39.0-53.0) Mean Corpuscular Volume 99 fL (79-100) 96 fL (79-100) Mean Corpuscular Hemoglobin 35 pg (25-35) 33 pg (25-35) Mean Corpuscular Hemoglobin Concent 35 g/dL (31-37) 34 g/dL (31-37) Red Cell Distribution Width 12.9 % (11.5-14.5) 13.9 % (11.5-14.5) Platelet Count 85 x10^3/uL (140-400) 108 x10^3/uL (140-400) Neutrophils (%) (Auto) 82 % (31-73) 64 % (31-73) Lymphocytes (%) (Auto) 7 % (24-48) 14 % (24-48) Monocytes (%) (Auto) 10 % (0-9) 11 % (0-9) Eosinophils (%) (Auto) 1 % (0-3) 10 % (0-3) Basophils (%) (Auto) 0 % (0-3) 0 % (0-3) Neutrophils # (Auto) 5.1 x10^3/uL (1.8-7.7) 2.8 x10^3/uL (1.8-7.7) Lymphocytes # (Auto) 0.4 x10^3/uL (1.0-4.8) 0.6 x10^3/uL (1.0-4.8) Monocytes # (Auto) 0.6 x10^3/uL (0.0-1.1) 0.5 x10^3/uL (0.0-1.1) Eosinophils # (Auto) 0.1 x10^3/uL (0.0-0.7) 0.4 x10^3/uL (0.0-0.7) Basophils # (Auto) 0.0 x10^3/uL (0.0-0.2) 0.0 x10^3/uL (0.0-0.2) Prothrombin Time 21.5 SEC (11.7-14.0) Prothromb Time International Ratio 1.9 (0.8-1.1) Sodium Level 133 mmol/L (136-145) 133 mmol/L (136-145) Potassium Level 3.8 mmol/L (3.5-5.1) 3.0 mmol/L (3.5-5.1) Chloride Level 98 mmol/L (98-107) 99 mmol/L (98-107) Carbon Dioxide Level 26 mmol/L (21-32) 26 mmol/L (21-32) Anion Gap 9 (6-14) 8 (6-14) Blood Urea Nitrogen 44 mg/dL (8-26) 37 mg/dL (8-26) Creatinine 1.4 mg/dL (0.7-1.3) 1.1 mg/dL (0.7-1.3) Estimated GFR (Cockcroft-Gault) 47.8 63.2 Glucose Level 142 mg/dL (70-99) 99 mg/dL (70-99) Calcium Level 7.7 mg/dL (8.5-10.1) 7.5 mg/dL (8.5-10.1) Phosphorus Level 4.1 mg/dL (2.6-4.7) Magnesium Level 2.0 mg/dL (1.8-2.4) Laboratory Tests Test 06/02/20 05:11 White Blood Count 4.3 x10^3/uL (4.0-11.0) Red Blood Count 2.29 x10^6/uL (4.30-5.70) Hemoglobin 7.6 g/dL (13.0-17.5) Hematocrit 22.1 % (39.0-53.0) Mean Corpuscular Volume 96 fL (79-100) Mean Corpuscular Hemoglobin 33 pg (25-35) Mean Corpuscular Hemoglobin Concent 34 g/dL (31-37) Red Cell Distribution Width 13.9 % (11.5-14.5) Platelet Count 108 x10^3/uL (140-400) Neutrophils (%) (Auto) 64 % (31-73) Lymphocytes (%) (Auto) 14 % (24-48) Monocytes (%) (Auto) 11 % (0-9) Eosinophils (%) (Auto) 10 % (0-3) Basophils (%) (Auto) 0 % (0-3) Neutrophils # (Auto) 2.8 x10^3/uL (1.8-7.7) Lymphocytes # (Auto) 0.6 x10^3/uL (1.0-4.8) Monocytes # (Auto) 0.5 x10^3/uL (0.0-1.1) Eosinophils # (Auto) 0.4 x10^3/uL (0.0-0.7) Basophils # (Auto) 0.0 x10^3/uL (0.0-0.2) Sodium Level 133 mmol/L (136-145) Potassium Level 3.0 mmol/L (3.5-5.1) Chloride Level 99 mmol/L (98-107) Carbon Dioxide Level 26 mmol/L (21-32) Anion Gap 8 (6-14) Blood Urea Nitrogen 37 mg/dL (8-26) Creatinine 1.1 mg/dL (0.7-1.3) Estimated GFR (Cockcroft-Gault) 63.2 Glucose Level 99 mg/dL (70-99) Calcium Level 7.5 mg/dL (8.5-10.1) Medications Current Medications Morphine Sulfate (Morphine Sulfate) 2 mg 1X ONCE IV Last administered on 05/29/20at 11:31; Start 05/29/20 at 11:30; Stop 05/29/20 at 11:31; Status DC Ondansetron HCl (Zofran) 4 mg PRN Q8HRS PRN IV NAUSEA/VOMITING; Start 05/29/20 at 11:45; Stop 05/29/20 at 13:33; Status DC Morphine Sulfate (Morphine Sulfate) 2 mg PRN Q2HR PRN IV PAIN Last administered on 05/29/20at 13:17; Start 05/29/20 at 11:45; Stop 05/29/20 at 13:33; Status DC Sodium Chloride 1,000 ml @ 75 mls/hr [id number] IV Last administered on 05/31/20at 19:51; Start 05/29/20 at 14:00 Ondansetron HCl (Zofran) 4 mg PRN Q4HRS PRN IV NAUSEA/VOMITING; Start 05/29/20 at 13:30; Stop 05/29/20 at 16:06; Status DC Zolpidem Tartrate (Ambien) 5 mg PRN QHS PRN PO INSOMNIA Last administered on 05/30/20at 21:24; Start 05/29/20 at 13:30; Stop 05/31/20 at 15:12; Status DC Acetaminophen (Tylenol) 650 mg PRN Q4HRS PRN PO TEMP OVER 100.4F OR MILD PAIN; Start 05/29/20 at 13:30 Acetaminophen (Tylenol Supp) 650 mg PRN Q4HRS PRN CO TEMP OVER 100.4F OR MILD PAIN; Start 05/29/20 at 13:30 Docusate Sodium (Colace) 100 mg PRN BID PRN PO HARD STOOLS Last administered on 05/30/20at 21:24; Start 05/29/20 at 13:30 Albuterol Sulfate (Ventolin Neb Soln) 2.5 mg PRN Q4HRS PRN NEB SHORTNESS OF BREATH; Start 05/29/20 at 13:30 Guaifenesin (Robitussin) 200 mg PRN Q4HRS PRN PO COUGH; Start 05/29/20 at 13:30 Lorazepam (Ativan) 0.5 mg PRN Q4HRS PRN PO ANXIETY / AGITATION Last administered on 05/30/20at 11:45; Start 05/29/20 at 13:30 Enoxaparin Sodium (Lovenox 40mg Syringe) 40 mg Q24H SQ ; Start 05/29/20 at 16:00; Status Cancel Morphine Sulfate (Morphine Sulfate) 2 mg PRN Q2HR PRN IV PAIN; Start 05/29/20 at 13:30; Stop 05/29/20 at 16:07; Status DC Propofol (Diprivan) 200 mg STK-MED ONCE IV ; Start 05/29/20 at 14:18; Stop 05/29/20 at 14:18; Status DC Dexamethasone Sodium Phosphate (Decadron) 4 mg STK-MED ONCE .ROUTE ; Start 05/29/20 at 14:18; Stop 05/29/20 at 14:18; Status DC Lidocaine HCl (Lidocaine Pf 2% Vial) 5 ml STK-MED ONCE .ROUTE ; Start 05/29/20 at 14:18; Stop 05/29/20 at 14:18; Status DC Ondansetron HCl (Zofran) 4 mg STK-MED ONCE .ROUTE ; Start 05/29/20 at 14:18; Stop 05/29/20 at 14:18; Status DC Famotidine (Pepcid Vial) 20 mg STK-MED ONCE .ROUTE ; Start 05/29/20 at 14:19; Stop 05/29/20 at 14:19; Status DC Cefazolin Sodium/ Dextrose 50 ml @ 100 mls/hr 1X PREOP PRN IV PRIOR TO PROCEDURE; Start 05/29/20 at 16:00; Stop 05/29/20 at 19:00; Status DC Tramadol HCl (Ultram) 50 mg PRN QID PRN PO MILD PAIN- 2ND CHOICE; Start 05/29/20 at 15:45 Oxycodone HCl (Roxicodone) 5 mg PRN Q3HRS PRN PO PAIN Last administered on 06/02/20at 08:28; Start 05/29/20 at 15:45 Morphine Sulfate (Morphine Sulfate) 2 mg PRN Q1HR PRN IVP PAIN; Start 05/29/20 at 15:45 Fentanyl Citrate (Fentanyl 2ml Vial) 25 mcg PRN Q1HR PRN IVP PAIN; Start 05/29/20 at 15:45 Senna/Docusate Sodium (Senna Plus) 1 tab DAILY PO Last administered on 06/01/20at 08:30; Start 05/30/20 at 09:00 Polyethylene Glycol (miraLAX PACKET) 17 gm PRN DAILY PRN PO CONSTIPATION; Start 05/29/20 at 15:45 Ondansetron HCl (Zofran) 4 mg PRN Q4HRS PRN IVP NAUSEA/VOMITING; Start 05/29/20 at 15:45 Warfarin Sodium (Coumadin) 7.5 mg 1X ONCE PO Last administered on 05/29/20at 19:32; Start 05/29/20 at 16:00; Stop 05/29/20 at 16:01; Status DC Warfarin Sodium (Coumadin Per Pharmacy) 1 each PRN DAILY PRN MC SEE COMMENTS Last administered on 06/01/20at 11:02; Start 05/30/20 at 15:45 Magnesium Hydroxide (Milk Of Magnesia) 2,400 mg 1X PRN PRN PO CONSTIPATION; Start 05/30/20 at 06:00; Stop 05/31/20 at 05:59; Status DC Bisacodyl (Dulcolax Supp) 10 mg 1X PRN PRN CO CONSTIPATION; Start 05/30/20 at 16:00; Stop 05/31/20 at 15:59; Status DC Acetaminophen/ Hydrocodone Bitart (Lortab 7.5/325) 1 tab PRN Q4HRS PRN PO MODERATE PAIN- THIRD CHOICE; Start 05/29/20 at 15:45 Dextrose (Dextrose 50%-Water Syringe) 12.5 gm PRN Q15MIN PRN IV SEE COMMENTS; Start 05/29/20 at 15:45 Cefazolin Sodium/ Dextrose 50 ml @ 100 mls/hr Q6H IV Last administered on 05/30/20at 12:45; Start 05/30/20 at 00:00; Stop 05/30/20 at 12:29; Status DC Fentanyl Citrate (Fentanyl 2ml Vial) 100 mcg STK-MED ONCE .ROUTE ; Start 05/29/20 at 16:03; Stop 05/29/20 at 16:04; Status DC Enoxaparin Sodium (Lovenox 40mg Syringe) 40 mg Q24H SQ Last administered on 05/31/20at 09:34; Start 05/30/20 at 09:00; Stop 06/01/20 at 10:42; Status DC Phenylephrine HCl (PHENYLEPHRINE in 0.9% NACL PF) 1 mg STK-MED ONCE IV ; Start 05/29/20 at 16:43; Stop 05/29/20 at 16:43; Status DC Ephedrine Sulfate (ePHEDrine PF IN SALINE SYRINGE) 50 mg STK-MED ONCE IV ; Start 05/29/20 at 16:43; Stop 05/29/20 at 16:43; Status DC Sevoflurane (Ultane) 60 ml STK-MED ONCE IH ; Start 05/29/20 at 16:43; Stop 05/29/20 at 16:43; Status DC Ondansetron HCl (Zofran) 4 mg PRN Q6HRS PRN IV NAUSEA/VOMITING; Start 05/29/20 at 17:45; Stop 05/30/20 at 02:00; Status DC Fentanyl Citrate (Fentanyl 2ml Vial) 25 mcg PRN Q5MIN PRN IV MILD PAIN 1-3; Start 05/29/20 at 17:45; Stop 05/30/20 at 02:00; Status DC Fentanyl Citrate (Fentanyl 2ml Vial) 50 mcg PRN Q5MIN PRN IV MODERATE TO SEVERE PAIN; Start 05/29/20 at 17:45; Stop 05/30/20 at 02:00; Status DC Morphine Sulfate (Morphine Sulfate) 1 mg PRN Q10MIN PRN IV SEVERE PAIN 7-10; Start 05/29/20 at 17:45; Stop 05/30/20 at 02:00; Status DC Ringer's Solution 1,000 ml @ 30 mls/hr Q24H IV ; Start 05/29/20 at 17:33; Stop 05/30/20 at 05:32; Status DC Lidocaine HCl (Xylocaine-Mpf 1% 2ml Vial) 2 ml PRN 1X PRN ID PRIOR TO IV START; Start 05/29/20 at 17:45; Stop 05/30/20 at 02:00; Status DC Hydromorphone HCl (Dilaudid) 0.5 mg PRN Q10MIN PRN IV SEV PAIN, Second choice; Start 05/29/20 at 17:45; Stop 05/30/20 at 02:00; Status DC Prochlorperazine Edisylate (Compazine) 5 mg PACU PRN PRN IV NAUSEA, MRX1; Start 05/29/20 at 17:45; Stop 05/30/20 at 02:00; Status DC Cetirizine HCl (ZyrTEC) 10 mg DAILY PO Last administered on 06/02/20at 08:28; Start 05/30/20 at 10:00 Gabapentin (Neurontin) 300 mg HS PO Last administered on 06/01/20at 21:11; Start 05/30/20 at 21:00 Lactobacillus Rhamnosus (Culturelle) 1 cap BID PO Last administered on 06/02/20at 08:27; Start 05/30/20 at 10:00 Lisinopril (Prinivil) 20 mg HS PO ; Start 05/30/20 at 21:00; Stop 05/30/20 at 09:29; Status DC Polyethylene Glycol (miraLAX PACKET) 17 gm DAILY PO Last administered on 06/01/20at 08:30; Start 05/30/20 at 10:00 Citalopram Hydrobromide (CeleXA) 10 mg DAILY PO Last administered on 06/02/20at 08:27; Start 05/30/20 at 10:00 Pantoprazole Sodium (Protonix) 40 mg DAILYAC PO Last administered on 06/02/20at 08:27; Start 05/30/20 at 10:00 Triamterene/HCTZ (Maxzide 37.5/ 25mg) 1 tab DAILY PO Last administered on 05/31/20at 09:34; Start 05/30/20 at 10:00; Stop 05/31/20 at 16:02; Status DC Diphenhydramine HCl (Benadryl) 25 mg PRN QHS PRN PO INSOMNIA; Start 05/30/20 at 09:30 Warfarin Sodium (Coumadin) 4 mg 1X WARF ONCE PO Last administered on 05/30/20at 15:40; Start 05/30/20 at 16:00; Stop 05/30/20 at 16:01; Status DC Sodium Chloride 500 ml @ 500 mls/hr 1X ONCE IV Last administered on 05/30/20at 14:58; Start 05/30/20 at 15:00; Stop 05/30/20 at 15:59; Status DC Warfarin Sodium (Coumadin) 4 mg 1X WARF ONCE PO Last administered on 05/31/20at 16:33; Start 05/31/20 at 16:00; Stop 05/31/20 at 16:01; Status DC Warfarin Sodium (Coumadin) 2 mg 1X WARF ONCE PO Last administered on 06/01/20at 18:18; Start 06/01/20 at 16:00; Stop 06/01/20 at 16:01; Status DC Active Scripts Active Polyethylene Glycol 3350 17 Gm Powd.pack 17 Gm PO DAILY Culturelle (Lactobacillus Rhamnosus Gg) 1 Each Cap.sprink 1 Cap PO BID Jewett 5-325 Tablet (Acetaminophen/Hydrocodone Bitart) 1 Each Tablet 1 Tab PO PRN Q6HRS PRN Reported Warfarin Sodium 4 Mg Tablet 1 Tab PO DAILY Lexapro (Escitalopram Oxalate) 5 Mg Tablet 5 Mg PO DAILY Gabapentin (Gabapentin) 300 Mg Capsule 300 Mg PO HS Lisinopril 20 Mg Tablet 1 Tab PO HS Meds not given this hospital admission. May resume home medications as approved by Physician. Zyrtec (Cetirizine Hcl) 10 Mg Tablet 1 Tab PO DAILY Omeprazole 40 Mg Capsule. 1 Cap PO DAILY Triamterene-Hctz 37.5-25 Mg Cp (Triamterene/Hydrochlorothiazid) 1 Each Capsule 1 Cap PO DAILY Vitals/I & O Vital Sign - Last 24 Hours 8/26/06/01/20 06/01/20 06/01/20 10:57 11:00 11:13 11:57 Temp 98.0 98.2 98.1 97.9 98.0 98.2 98.1 97.9 Pulse 95 95 91 95 Resp 18 18 18 18 B/P (MAP) 117/47 117/47 (70) 94/48 118/60 Pulse Ox 91 O2 Delivery Nasal Cannula O2 Flow Rate 2.0 06/01/20 06/01/20 06/01/20 06/01/20 12:57 13:10 13:54 13:54 Temp 98.0 98.0 Pulse 95 95 91 Resp 18 B/P (MAP) 119/54 119/54 (75) 123/57 Pulse Ox 93 O2 Delivery Nasal Cannula Nasal Cannula O2 Flow Rate 1.0 06/01/20 06/01/20 06/01/20 06/01/20 14:00 14:00 14:00 14:54 B/P (MAP) 129/58 (81) 143/72 (95) 123/57 (79) O2 Delivery Nasal Cannula O2 Flow Rate 1.0 06/01/20 06/01/20 06/01/20 06/01/20 14:57 15:00 19:00 20:00 Temp 98.2 98.2 97.9 98.2 98.2 97.9 Pulse 69 69 91 Resp B/P (MAP) 123/59 123/59 (80) 132/75 (94) Pulse Ox 90 95 O2 Delivery Nasal Cannula Nasal Cannula Nasal Cannula O2 Flow Rate 2.0 2.0 06/01/20 06/02/20 06/02/20 06/02/20 23:00 03:00 07:00 08:00 Temp 97.6 97.7 97.5 97.6 97.7 97.5 Pulse 88 65 69 Resp 19 19 18 B/P (MAP) 129/74 (92) 121/55 (77) 140/74 (96) Pulse Ox 97 97 95 O2 Delivery Nasal Cannula Nasal Cannula Nasal Cannula Nasal Cannula O2 Flow Rate 2.0 2.0 2.0 2.0 06/02/20 08:28 O2 Delivery Nasal Cannula O2 Flow Rate 2.0 Intake and Output 06/01/20 06/01/20 06/02/20 15:00 23:00 07:00 Intake Total 300 ml 450 ml 300 ml Output Total 350 ml Balance 300 ml 450 ml -50 ml Justicifation of Admission Dx: Justifications for Admission: Justification of Admission Dx: Yes Fracture: Fracture RAMOS DIAZ MD Jun 02, 2020 09:10
[2020-06-02 09:22] LABS: PROTHROMBIN TIME PATIENT 16.4 SEC (11.7-14.0)
[2020-06-02 11:00] VITALS: BP 107/61
[2020-06-02] MEDS: IV NORMAL SALINE 1000ML BAG 1,000 ML IV SCH (11:20)
--- NOTE | 2020-06-02 11:52 | PDOC2 ---
GI CONSULT Date of Service: DATE: 06/02/20 TIME: 11:44 Reason For Consult: post-op anemia, marked HPI: HPI: 89 y/o male s/p ORIF right intertrochanteric hip fracture with intramedullary fixation on 05/29/20. Received Warfarin after. Post-op anemia noted, requiring transfusion yesterday. Hgb was normal pre-op but anemic in the past on review of labs. Per nurse, RICKY planned today. Daughter concerned that he will not get to go to today. H/o GERD controlled w/ omeprazole. No dysphagia, n/v, abd pain, diarrhea, constipation, hematemesis, hematochezia, or melena. EGD and colonoscopy years ago, reportedly normal. Large hiatal hernia on CXR. S/p cholecystectomy for stone. No liver, pancreas, or PUD history. PMH: PMH: CAD, ICM, CHF, HTN, HLD, peripheral neuropathy appendectomy, CABG, cholecystectomy FH: Family History: No pertinent hx Social History: Smoke: No ALCOHOL: none Drugs: None ROS: GEN: Denies fevers, chills, sweats HEENT: Denies blurred vision, sore throat CV: Denies chest pain RESP: Denies shortness of air, cough GI: Per HPI : Denies hematuria, dysuria ENDO: Denies weight changes NEURO: Denies confusion, dizziness MSK: hip/leg pain SKIN: Denies jaundice, pruritus Vitals: Vitals: Vital Signs Date Time Temp Pulse Resp B/P (MAP) Pulse Ox O2 Delivery O2 Flow Rate FiO2 06/02/20 11:00 97.4 67 18 107/61 (76) 96 Nasal Cannula 2.0 97.4 Labs: Labs: Laboratory Tests Test 06/02/20 05:11 White Blood Count 4.3 x10^3/uL (4.0-11.0) Red Blood Count 2.29 x10^6/uL (4.30-5.70) Hemoglobin 7.6 g/dL (13.0-17.5) Hematocrit 22.1 % (39.0-53.0) Mean Corpuscular Volume 96 fL (79-100) Mean Corpuscular Hemoglobin 33 pg (25-35) Mean Corpuscular Hemoglobin Concent 34 g/dL (31-37) Red Cell Distribution Width 13.9 % (11.5-14.5) Platelet Count 108 x10^3/uL (140-400) Neutrophils (%) (Auto) 64 % (31-73) Lymphocytes (%) (Auto) 14 % (24-48) Monocytes (%) (Auto) 11 % (0-9) Eosinophils (%) (Auto) 10 % (0-3) Basophils (%) (Auto) 0 % (0-3) Neutrophils # (Auto) 2.8 x10^3/uL (1.8-7.7) Lymphocytes # (Auto) 0.6 x10^3/uL (1.0-4.8) Monocytes # (Auto) 0.5 x10^3/uL (0.0-1.1) Eosinophils # (Auto) 0.4 x10^3/uL (0.0-0.7) Basophils # (Auto) 0.0 x10^3/uL (0.0-0.2) Prothrombin Time 16.4 SEC (11.7-14.0) Prothromb Time International Ratio 1.4 (0.8-1.1) Sodium Level 133 mmol/L (136-145) Potassium Level 3.0 mmol/L (3.5-5.1) Chloride Level 99 mmol/L (98-107) Carbon Dioxide Level 26 mmol/L (21-32) Anion Gap 8 (6-14) Blood Urea Nitrogen 37 mg/dL (8-26) Creatinine 1.1 mg/dL (0.7-1.3) Estimated GFR (Cockcroft-Gault) 63.2 Glucose Level 99 mg/dL (70-99) Calcium Level 7.5 mg/dL (8.5-10.1) Allergies: Coded Allergies: Penicillins (Verified Allergy, Intermediate, 11/04/17) Medications: Current Medications Medications (Trade) Dose Ordered Sig/Ginny Route PRN Reason Start Time Stop Time Status Last Admin Dose Admin Warfarin Sodium (Coumadin) 2 mg 1X WARF ONCE PO 06/01/20 16:00 06/01/20 16:01 DC 06/01/20 18:18 Imaging: Imaging: Hip/Pelv X-Ray IMPRESSION: Impacted intertrochanteric fracture of the proximal right femur. CXR IMPRESSION: 1. Correlate for a large hiatal hernia. Fluoroscopy IMPRESSION: Fluoroscopic imaging for procedural guidance during right femoral intertrochanteric fracture fixation. PE: GEN: NAD - seems fatigued - getting ready to work w/ PT HEENT: Atraumatic, PERRLA LUNGS: clear anteriorly, NC HEART: RRR ABD: NABS, S/ND/NT EXTREMITY: No edema SKIN: No rashes, no jaundice NEURO/PSYCH: A & O 3 A/P: A/P: S/p ORIF right intertrochanteric hip fracture with intramedullary fixation 05/29/20 H/o anemia - Hgb normal on admission but drift post-op - no obvious bleeding, received Warfarin GERD, hiatal hernia - on PPI CRC screen - reportedly normal colonoscopy in the past S/p cholecystectomy COVID negative -- Can check iron and B12, though was transfused yesterday. Continue PPI. Will review any need for further inpt GI testing w/ Dr. Castle. MIKE HODGES Jun 02, 2020 11:52
--- NOTE | 2020-06-02 13:19 | PDOC3 ---
Discharge Summary Date of Admission: May 29, 2020 Date of Discharge: Jun 02, 2020 Follow-Up: 1-2 days Admitting Diagnosis comment: DISCHARGE DX Postop day 4 ORIF hip fracture History of coronary artery disease status post CABG currently asymptomatic CAD s/p previous CABG; cath 04/21 with patent MCMILLAN to LAD, SVG to OM, and SVG to OM. Clinically stable. CP free Orthostatic hypotension, post-operatively. improved with IVFs Ischemic cardiomyopathy; most recent echo with LVER 45%. clinically compensated Essential hypertension History of reflux disease Hyponatremia secondary to pain mediated response most likely MARKED POST OP ANEMIA plan GI CONSULT AM H/H GUIAC STOOLS Discharge Recommendations * Custodial Unit History of Present Illness History of Present Illness 06/02/2020 Patient seen and examined Discussed with RN Reviewed chart Hemoglobin low //1 unit of prbc 06/01 Discharge to SNU if hemoglobin is stable gi consult am labs OCCULT STOOLS PO PROTONIX TRANSFER TO PP, FOLLOW HGB THERE 40 MIN pt exam, chart review, > 50% of time spent with exam, chart review, pt care coordination 05/31/2020 Patient seen and examined Discussed with RN Chart reviewed Discussed with his daughter as well She would really like to get him home instead of detention Vitals Vitals Vital Signs Date Time Temp Pulse Resp B/P (MAP) Pulse Ox O2 Delivery O2 Flow Rate FiO2 06/02/20 08:28 Nasal Cannula 2.0 06/02/20 07:00 97.5 69 18 140/74 (96) 95 97.5 Physical Exam Physical Exam PLAYING CARDS IN ROOM WITH DAUGHTER General: Alert, Oriented X3, Cooperative, No acute distress Heart: Regular rate (not on tele), Normal S1 Lungs: Clear Abdomen: Normal bowel sounds, Soft, No tenderness Extremities: No cyanosis, No edema, Normal pulses Skin: No significant lesion FINAL DIAGNOSIS Problems Medical Problems: (1) Intertrochanteric fracture of right hip Status: Acute Brief Hospital Course Mr. Nuñez is a 89 old [sex] who presented with [ RIGHT HIP FRACTURE, POST OP ANEMIA] CONDITION AT DISCHARGE: Improved Discharge Medications Current Medications Morphine Sulfate (Morphine Sulfate) 2 mg 1X ONCE IV Last administered on 05/29/20at 11:31; Start 05/29/20 at 11:30; Stop 05/29/20 at 11:31; Status DC Ondansetron HCl (Zofran) 4 mg PRN Q8HRS PRN IV NAUSEA/VOMITING; Start 05/29/20 at 11:45; Stop 05/29/20 at 13:33; Status DC Morphine Sulfate (Morphine Sulfate) 2 mg PRN Q2HR PRN IV PAIN Last administered on 05/29/20at 13:17; Start 05/29/20 at 11:45; Stop 05/29/20 at 13:33; Status DC Sodium Chloride 1,000 ml @ 75 mls/hr [id number] IV Last administered on 05/31/20at 19:51; Start 05/29/20 at 14:00 Ondansetron HCl (Zofran) 4 mg PRN Q4HRS PRN IV NAUSEA/VOMITING; Start 05/29/20 at 13:30; Stop 05/29/20 at 16:06; Status DC Zolpidem Tartrate (Ambien) 5 mg PRN QHS PRN PO INSOMNIA Last administered on 05/30/20at 21:24; Start 05/29/20 at 13:30; Stop 05/31/20 at 15:12; Status DC Acetaminophen (Tylenol) 650 mg PRN Q4HRS PRN PO TEMP OVER 100.4F OR MILD PAIN; Start 05/29/20 at 13:30 Acetaminophen (Tylenol Supp) 650 mg PRN Q4HRS PRN [place] TEMP OVER 100.4F OR MILD PAIN; Start 05/29/20 at 13:30 Docusate Sodium (Colace) 100 mg PRN BID PRN PO HARD STOOLS Last administered on 05/30/20at 21:24; Start 05/29/20 at 13:30 Albuterol Sulfate (Ventolin Neb Soln) 2.5 mg PRN Q4HRS PRN NEB SHORTNESS OF BREATH; Start 05/29/20 at 13:30 Guaifenesin (Robitussin) 200 mg PRN Q4HRS PRN PO COUGH; Start 05/29/20 at 13:30 Lorazepam (Ativan) 0.5 mg PRN Q4HRS PRN PO ANXIETY / AGITATION Last administered on 05/30/20at 11:45; Start 05/29/20 at 13:30 Enoxaparin Sodium (Lovenox 40mg Syringe) 40 mg Q24H SQ ; Start 05/29/20 at 16:00; Status Cancel Morphine Sulfate (Morphine Sulfate) 2 mg PRN Q2HR PRN IV PAIN; Start 05/29/20 at 13:30; Stop 05/29/20 at 16:07; Status DC Propofol (Diprivan) 200 mg STK-MED ONCE IV ; Start 05/29/20 at 14:18; Stop 05/29/20 at 14:18; Status DC Dexamethasone Sodium Phosphate (Decadron) 4 mg STK-MED ONCE .ROUTE ; Start 05/29/20 at 14:18; Stop 05/29/20 at 14:18; Status DC Lidocaine HCl (Lidocaine Pf 2% Vial) 5 ml STK-MED ONCE .ROUTE ; Start 05/29/20 at 14:18; Stop 05/29/20 at 14:18; Status DC Ondansetron HCl (Zofran) 4 mg STK-MED ONCE .ROUTE ; Start 05/29/20 at 14:18; Stop 05/29/20 at 14:18; Status DC Famotidine (Pepcid Vial) 20 mg STK-MED ONCE .ROUTE ; Start 05/29/20 at 14:19; Stop 05/29/20 at 14:19; Status DC Cefazolin Sodium/ Dextrose 50 ml @ 100 mls/hr 1X PREOP PRN IV PRIOR TO PROCEDURE; Start 05/29/20 at 16:00; Stop 05/29/20 at 19:00; Status DC Tramadol HCl (Ultram) 50 mg PRN QID PRN PO MILD PAIN- 2ND CHOICE; Start 05/29/20 at 15:45 Oxycodone HCl (Roxicodone) 5 mg PRN Q3HRS PRN PO PAIN Last administered on 06/02/20at 08:28; Start 05/29/20 at 15:45 Morphine Sulfate (Morphine Sulfate) 2 mg PRN Q1HR PRN IVP PAIN; Start 05/29/20 at 15:45 Fentanyl Citrate (Fentanyl 2ml Vial) 25 mcg PRN Q1HR PRN IVP PAIN; Start 05/29/20 at 15:45 Senna/Docusate Sodium (Senna Plus) 1 tab DAILY PO Last administered on 06/01/20at 08:30; Start 05/30/20 at 09:00 Polyethylene Glycol (miraLAX PACKET) 17 gm PRN DAILY PRN PO CONSTIPATION; Start 05/29/20 at 15:45 Ondansetron HCl (Zofran) 4 mg PRN Q4HRS PRN IVP NAUSEA/VOMITING; Start 05/29/20 at 15:45 Warfarin Sodium (Coumadin) 7.5 mg 1X ONCE PO Last administered on 05/29/20at 19:32; Start 05/29/20 at 16:00; Stop 05/29/20 at 16:01; Status DC Warfarin Sodium (Coumadin Per Pharmacy) 1 each PRN DAILY PRN MC SEE COMMENTS Last administered on 06/01/20at 11:02; Start 05/30/20 at 15:45 Magnesium Hydroxide (Milk Of Magnesia) 2,400 mg 1X PRN PRN PO CONSTIPATION; Start 05/30/20 at 06:00; Stop 05/31/20 at 05:59; Status DC Bisacodyl (Dulcolax Supp) 10 mg 1X PRN PRN [place] CONSTIPATION; Start 05/30/20 at 16:00; Stop 05/31/20 at 15:59; Status DC Acetaminophen/ Hydrocodone Bitart (Lortab 7.5/325) 1 tab PRN Q4HRS PRN PO MODERATE PAIN- THIRD CHOICE; Start 05/29/20 at 15:45 Dextrose (Dextrose 50%-Water Syringe) 12.5 gm PRN Q15MIN PRN IV SEE COMMENTS; Start 05/29/20 at 15:45 Cefazolin Sodium/ Dextrose 50 ml @ 100 mls/hr Q6H IV Last administered on 05/30/20at 12:45; Start 05/30/20 at 00:00; Stop 05/30/20 at 12:29; Status DC Fentanyl Citrate (Fentanyl 2ml Vial) 100 mcg STK-MED ONCE .ROUTE ; Start 05/29/20 at 16:03; Stop 05/29/20 at 16:04; Status DC Enoxaparin Sodium (Lovenox 40mg Syringe) 40 mg Q24H SQ Last administered on 05/31/20at 09:34; Start 05/30/20 at 09:00; Stop 06/01/20 at 10:42; Status DC Phenylephrine HCl (PHENYLEPHRINE in 0.9% NACL PF) 1 mg STK-MED ONCE IV ; Start 05/29/20 at 16:43; Stop 05/29/20 at 16:43; Status DC Ephedrine Sulfate (ePHEDrine PF IN SALINE SYRINGE) 50 mg STK-MED ONCE IV ; Start 05/29/20 at 16:43; Stop 05/29/20 at 16:43; Status DC Sevoflurane (Ultane) 60 ml STK-MED ONCE IH ; Start 05/29/20 at 16:43; Stop 05/29/20 at 16:43; Status DC Ondansetron HCl (Zofran) 4 mg PRN Q6HRS PRN IV NAUSEA/VOMITING; Start 05/29/20 at 17:45; Stop 05/30/20 at 02:00; Status DC Fentanyl Citrate (Fentanyl 2ml Vial) 25 mcg PRN Q5MIN PRN IV MILD PAIN 1-3; Start 05/29/20 at 17:45; Stop 05/30/20 at 02:00; Status DC Fentanyl Citrate (Fentanyl 2ml Vial) 50 mcg PRN Q5MIN PRN IV MODERATE TO SEVERE PAIN; Start 05/29/20 at 17:45; Stop 05/30/20 at 02:00; Status DC Morphine Sulfate (Morphine Sulfate) 1 mg PRN Q10MIN PRN IV SEVERE PAIN 7-10; Start 05/29/20 at 17:45; Stop 05/30/20 at 02:00; Status DC Ringer's Solution 1,000 ml @ 30 mls/hr Q24H IV ; Start 05/29/20 at 17:33; Stop 05/30/20 at 05:32; Status DC Lidocaine HCl (Xylocaine-Mpf 1% 2ml Vial) 2 ml PRN 1X PRN ID PRIOR TO IV START; Start 05/29/20 at 17:45; Stop 05/30/20 at 02:00; Status DC Hydromorphone HCl (Dilaudid) 0.5 mg PRN Q10MIN PRN IV SEV PAIN, Second choice; Start 05/29/20 at 17:45; Stop 05/30/20 at 02:00; Status DC Prochlorperazine Edisylate (Compazine) 5 mg PACU PRN PRN IV NAUSEA, MRX1; Start 05/29/20 at 17:45; Stop 05/30/20 at 02:00; Status DC Cetirizine HCl (ZyrTEC) 10 mg DAILY PO Last administered on 06/02/20at 08:28; Start 05/30/20 at 10:00 Gabapentin (Neurontin) 300 mg HS PO Last administered on 06/01/20at 21:11; Start 05/30/20 at 21:00 Lactobacillus Rhamnosus (Culturelle) 1 cap BID PO Last administered on 06/02/20at 08:27; Start 05/30/20 at 10:00 Lisinopril (Prinivil) 20 mg HS PO ; Start 05/30/20 at 21:00; Stop 05/30/20 at 09:29; Status DC Polyethylene Glycol (miraLAX PACKET) 17 gm DAILY PO Last administered on 06/01/20at 08:30; Start 05/30/20 at 10:00 Citalopram Hydrobromide (CeleXA) 10 mg DAILY PO Last administered on 06/02/20at 08:27; Start 05/30/20 at 10:00 Pantoprazole Sodium (Protonix) 40 mg DAILYAC PO Last administered on 06/02/20at 08:27; Start 05/30/20 at 10:00 Triamterene/HCTZ (Maxzide 37.5/ 25mg) 1 tab DAILY PO Last administered on 05/31/20at 09:34; Start 05/30/20 at 10:00; Stop 05/31/20 at 16:02; Status DC Diphenhydramine HCl (Benadryl) 25 mg PRN QHS PRN PO INSOMNIA; Start 05/30/20 at 09:30 Warfarin Sodium (Coumadin) 4 mg 1X WARF ONCE PO Last administered on 05/30/20at 15:40; Start 05/30/20 at 16:00; Stop 05/30/20 at 16:01; Status DC Sodium Chloride 500 ml @ 500 mls/hr 1X ONCE IV Last administered on 05/30/20at 14:58; Start 05/30/20 at 15:00; Stop 05/30/20 at 15:59; Status DC Warfarin Sodium (Coumadin) 4 mg 1X WARF ONCE PO Last administered on 05/31/20at 16:33; Start 05/31/20 at 16:00; Stop 05/31/20 at 16:01; Status DC Warfarin Sodium (Coumadin) 2 mg 1X WARF ONCE PO Last administered on 06/01/20at 18:18; Start 06/01/20 at 16:00; Stop 06/01/20 at 16:01; Status DC Active Scripts Active Polyethylene Glycol 3350 17 Gm Powd.pack 17 Gm PO DAILY Culturelle (Lactobacillus Rhamnosus Gg) 1 Each Cap.sprink 1 Cap PO BID Globe 5-325 Tablet (Acetaminophen/Hydrocodone Bitart) 1 Each Tablet 1 Tab PO PRN Q6HRS PRN Reported Warfarin Sodium 4 Mg Tablet 1 Tab PO DAILY Lexapro (Escitalopram Oxalate) 5 Mg Tablet 5 Mg PO DAILY Gabapentin (Gabapentin) 300 Mg Capsule 300 Mg PO HS Lisinopril 20 Mg Tablet 1 Tab PO HS Meds not given this hospital admission. May resume home medications as approved by Physician. Zyrtec (Cetirizine Hcl) 10 Mg Tablet 1 Tab PO DAILY Omeprazole 40 Mg Capsule.dr 1 Cap PO DAILY Triamterene-Hctz 37.5-25 Mg Cp (Triamterene/Hydrochlorothiazid) 1 Each Capsule 1 Cap PO DAILY Vital Signs Vital Signs Date Time Temp Pulse Resp B/P (MAP) Pulse Ox O2 Delivery O2 Flow Rate FiO2 06/02/20 11:00 97.4 67 18 107/61 (76) 96 Nasal Cannula 2.0 97.4 Labs Laboratory Tests Test 06/01/20 04:50 06/02/20 05:11 White Blood Count 6.2 x10^3/uL (4.0-11.0) 4.3 x10^3/uL (4.0-11.0) Red Blood Count 1.94 x10^6/uL (4.30-5.70) 2.29 x10^6/uL (4.30-5.70) Hemoglobin 6.7 g/dL (13.0-17.5) 7.6 g/dL (13.0-17.5) Hematocrit 19.1 % (39.0-53.0) 22.1 % (39.0-53.0) Mean Corpuscular Volume 99 fL (79-100) 96 fL (79-100) Mean Corpuscular Hemoglobin 35 pg (25-35) 33 pg (25-35) Mean Corpuscular Hemoglobin Concent 35 g/dL (31-37) 34 g/dL (31-37) Red Cell Distribution Width 12.9 % (11.5-14.5) 13.9 % (11.5-14.5) Platelet Count 85 x10^3/uL (140-400) 108 x10^3/uL (140-400) Neutrophils (%) (Auto) 82 % (31-73) 64 % (31-73) Lymphocytes (%) (Auto) 7 % (24-48) 14 % (24-48) Monocytes (%) (Auto) 10 % (0-9) 11 % (0-9) Eosinophils (%) (Auto) 1 % (0-3) 10 % (0-3) Basophils (%) (Auto) 0 % (0-3) 0 % (0-3) Neutrophils # (Auto) 5.1 x10^3/uL (1.8-7.7) 2.8 x10^3/uL (1.8-7.7) Lymphocytes # (Auto) 0.4 x10^3/uL (1.0-4.8) 0.6 x10^3/uL (1.0-4.8) Monocytes # (Auto) 0.6 x10^3/uL (0.0-1.1) 0.5 x10^3/uL (0.0-1.1) Eosinophils # (Auto) 0.1 x10^3/uL (0.0-0.7) 0.4 x10^3/uL (0.0-0.7) Basophils # (Auto) 0.0 x10^3/uL (0.0-0.2) 0.0 x10^3/uL (0.0-0.2) Prothrombin Time 21.5 SEC (11.7-14.0) 16.4 SEC (11.7-14.0) Prothromb Time International Ratio 1.9 (0.8-1.1) 1.4 (0.8-1.1) Sodium Level 133 mmol/L (136-145) 133 mmol/L (136-145) Potassium Level 3.8 mmol/L (3.5-5.1) 3.0 mmol/L (3.5-5.1) Chloride Level 98 mmol/L (98-107) 99 mmol/L (98-107) Carbon Dioxide Level 26 mmol/L (21-32) 26 mmol/L (21-32) Anion Gap 9 (6-14) 8 (6-14) Blood Urea Nitrogen 44 mg/dL (8-26) 37 mg/dL (8-26) Creatinine 1.4 mg/dL (0.7-1.3) 1.1 mg/dL (0.7-1.3) Estimated GFR (Cockcroft-Gault) 47.8 63.2 Glucose Level 142 mg/dL (70-99) 99 mg/dL (70-99) Calcium Level 7.7 mg/dL (8.5-10.1) 7.5 mg/dL (8.5-10.1) Phosphorus Level 4.1 mg/dL (2.6-4.7) Magnesium Level 2.0 mg/dL (1.8-2.4) Iron Level 46 ug/dL (65-175) Total Iron Binding Capacity 186 ug/dL (250-450) Iron Saturation 25 % (15-34) Vitamin B12 Level 335 pg/mL (247-911) Laboratory Tests Test 06/02/20 05:11 White Blood Count 4.3 x10^3/uL (4.0-11.0) Red Blood Count 2.29 x10^6/uL (4.30-5.70) Hemoglobin 7.6 g/dL (13.0-17.5) Hematocrit 22.1 % (39.0-53.0) Mean Corpuscular Volume 96 fL (79-100) Mean Corpuscular Hemoglobin 33 pg (25-35) Mean Corpuscular Hemoglobin Concent 34 g/dL (31-37) Red Cell Distribution Width 13.9 % (11.5-14.5) Platelet Count 108 x10^3/uL (140-400) Neutrophils (%) (Auto) 64 % (31-73) Lymphocytes (%) (Auto) 14 % (24-48) Monocytes (%) (Auto) 11 % (0-9) Eosinophils (%) (Auto) 10 % (0-3) Basophils (%) (Auto) 0 % (0-3) Neutrophils # (Auto) 2.8 x10^3/uL (1.8-7.7) Lymphocytes # (Auto) 0.6 x10^3/uL (1.0-4.8) Monocytes # (Auto) 0.5 x10^3/uL (0.0-1.1) Eosinophils # (Auto) 0.4 x10^3/uL (0.0-0.7) Basophils # (Auto) 0.0 x10^3/uL (0.0-0.2) Prothrombin Time 16.4 SEC (11.7-14.0) Prothromb Time International Ratio 1.4 (0.8-1.1) Sodium Level 133 mmol/L (136-145) Potassium Level 3.0 mmol/L (3.5-5.1) Chloride Level 99 mmol/L (98-107) Carbon Dioxide Level 26 mmol/L (21-32) Anion Gap 8 (6-14) Blood Urea Nitrogen 37 mg/dL (8-26) Creatinine 1.1 mg/dL (0.7-1.3) Estimated GFR (Cockcroft-Gault) 63.2 Glucose Level 99 mg/dL (70-99) Calcium Level 7.5 mg/dL (8.5-10.1) Iron Level 46 ug/dL (65-175) Total Iron Binding Capacity 186 ug/dL (250-450) Iron Saturation 25 % (15-34) Vitamin B12 Level 335 pg/mL (247-911) Allergies Allergies Coded Allergies Type Severity Reaction Last Updated Verified Penicillins Allergy Intermediate 11/04/17 Yes Disposition/Orders: Other (D/C TO SNF ) Justicifation of Admission Dx: Justifications for Admission: Justification of Admission Dx: Yes Fracture: Fracture RAMOS DIAZ MD Jun 02, 2020 13:19
[2020-06-02] MEDS ORDERED: DOCU-153 PO (13:22)
[2020-06-02] MEDS ORDERED: ACET325T9 PO (13:22)
[2020-06-02] MEDS ORDERED: ACET650S11 PR (13:22)
[2020-06-02] MEDS ORDERED: ALBU2.5V8 NEB (13:22)
--- NOTE | 2020-06-02 13:23 | SNU/HH DC ---
DISCHARGE ORDERS DISCHARGE INFORMATION: FINAL DIAGNOSIS Problems Medical Problems: (1) Intertrochanteric fracture of right hip Status: Acute CONDITION ON DISCHARGE: Stable CODE STATUS: Code Status: Full DETENTION: SNF STAY <30 DAYS: Yes HOSPICE: HOSPICE: No HOSPICE EVAL & TREAT: No LTAC: ADMIT TO LTAC: No POST DISCHARGE ORDERS: ACTIVITY ORDERS: Progressive ambulation, Walk in house, Other, see below WEIGHT BEARING STATUS: No restrictions, Full weight bearing, As tolerated BATHING ORDERS: Shower-keep dressing dry, No Tub Bath until see WOUND/INCISION CARE: Ice to area for comfort, Keep wound/cast CDI, Keep wound elevated, Do not change dressing CHECKS AFTER DISCHARGE: CHECKS AFTER DISCHARGE: Check blood press - daily TREATMENT/EQUIPMENT ORDERS: ADAPTIVE EQUIPMENT NEEDED: None, Front wheeled walker Physical Therapy For: Evalulation/Treatment Occupational Therapy For: Evaluation/Treatment DISCHARGE MEDICATIONS: Home Meds Active Scripts Docusate Sodium (DOK) 100 Mg Capsule, 100 MG PO PRN BID PRN for HARD STOOLS for 30 Days, #60 CAP Prov:RAMOS DIAZ MD 06/02/20 Acetaminophen (TYLENOL) 325 Mg Tablet, 650 MG PO PRN Q4HRS PRN for TEMP OVER 100.4F OR MILD PAIN for 14 Days, #30 TAB Prov:RAMOS DIAZ MD 06/02/20 Acetaminophen (ACETAMINOPHEN SUPP) 650 Mg Supp.rect, 650 MG SD PRN Q4HRS PRN for TEMP OVER 100.4F OR MILD PAIN for 10 Days, #14 SUPP.RECT Prov:RAMOS DIAZ MD 06/02/20 Albuterol Sulfate (Proair Hfa) 8.5 Gm Hfa.aer.ad, 2.5 MG NEB PRN Q4HRS PRN for SHORTNESS OF BREATH for 10 Days, #1 INHALER Prov:RAMOS DIAZ MD 06/02/20 Polyethylene Glycol 3350 (POLYETHYLENE GLYCOL 3350) 17 Gm Powd.pack, 17 GM PO DAILY, #30 PKT Prov:MELIDA MORALES MD 10/16/17 Lactobacillus Rhamnosus Gg (CULTURELLE) 1 Each Cap.sprink, 1 CAP PO BID, #20 CAP Prov:MELIDA MORALES MD 10/16/17 Hydrocodone/Apap 5-325 (NORCO 5-325 TABLET) 1 Each Tablet, 1 TAB PO PRN Q6HRS PRN for PAIN, #6 TAB 0 Refills Prov:PARRIS LYONS MD 09/26/17 Reported Medications Warfarin Sodium (WARFARIN SODIUM) 4 Mg Tablet, 1 TAB PO DAILY for blood thinner, #30 TAB 0 Refills 11/07/17 Escitalopram Oxalate (LEXAPRO) 5 Mg Tablet, 5 MG PO DAILY for depression, TAB 10/13/17 Gabapentin (GABAPENTIN ) 300 Mg Capsule, 300 MG PO HS for neurpathy/pain, CAP 04/16/16 Lisinopril (LISINOPRIL) 20 Mg Tablet, 1 TAB PO HS for blood pressure , #30 TAB 5 Refills Meds not given this hospital admission. May resume home medications as approved by Physician. 04/16/16 Cetirizine Hcl (ZYRTEC) 10 Mg Tablet, 1 TAB PO DAILY for ALLERGIES, #30 TAB 2 Refills 04/16/16 Omeprazole (OMEPRAZOLE) 40 Mg Capsule.dr, 1 CAP PO DAILY for stomach acid, #30 CAP 3 Refills 04/16/16 Triamterene/Hydrochlorothiazid (TRIAMTERENE-HCTZ 37.5-25 MG CP) 1 Each Capsule, 1 CAP PO DAILY, #30 CAP 5 Refills 04/16/16 RAMOS DIAZ MD Jun 02, 2020 13:23
--- NOTE | 2020-06-02 14:14 | NUR ---
Pharmacy Warfarin Dosing Note S:Pharmacy consulted to assist with anticoagulation therapy started with target INR: 1.6 - 2.5 O:YANIQUE FOX is a 89 year old M with Hip Fracture LABS: Last INR: 1.4 Last HGB: 7.6 Last HCT: 22.1 Last PLT: 108 Last dose of 2 mg given on 06/01/20 at 1818 Previous Regimen: Vitamin K given: Drug Interaction Changes: Same Interacting Drug Ongoing Drug Interactions: citalopram 06/01 PT GETTING 1 UNIT PRBC TODAY A:INR of 1.4 is below desired range. Target range for this patient is: 1.6 - 2.5 P: Warfarin dose: 4 mg Today at 1600 Bridge Therapy: . . . Next INR due IN AM Pharmacy anticoagulation service will continue to follow. ADITYA MEADOWS [facility], 06/02/20 1423
--- NOTE | 2020-06-02 15:33 | NUR ---
Pt discharging to [facility]. Called and gave report to [place]. IV removed. Surgical dressing changed. Bam intact. Cleansed with chloraprep and covered with aquacel ag surgical dressing. Assisted to wheelchair and was taken by transportation.
== END 2020-06-02 15:35 | DRG 481 ==
LOC: ER 10:59 → 4 NORTH 11:32
PROVIDERS: ADMIT Orthopaedic Surgery; ATTEND Orthopaedic Surgery
PROC: 0QS636Z Reposition Right Upper Femur with Intramedullary Internal Fixation Device, Percutaneous Approach (ICD-10-PCS; principal; 2020-05-29 15:00)
PROC: 30233N1 Transfusion of Nonautologous Red Blood Cells into Peripheral Vein, Percutaneous Approach (ICD-10-PCS; 2020-06-01)
DX: S72.141A Displaced intertrochanteric fracture of right femur, initial encounter for closed fracture (principal); E87.1 Hypo-osmolality and hyponatremia; I50.22 Chronic systolic (congestive) heart failure; D64.9 Anemia, unspecified; E78.5 Hyperlipidemia, unspecified; F41.9 Anxiety disorder, unspecified; G62.9 Polyneuropathy, unspecified; I11.0 Hypertensive heart disease with heart failure; I25.10 Atherosclerotic heart disease of native coronary artery without angina pectoris; I25.2 Old myocardial infarction; I25.5 Ischemic cardiomyopathy; I95.1 Orthostatic hypotension; Z51.5 Encounter for palliative care; Z82.49 Family history of ischemic heart disease and other diseases of the circulatory system; Z90.49 Acquired absence of other specified parts of digestive tract; Z95.1 Presence of aortocoronary bypass graft; Z96.642 Presence of left artificial hip joint; K21.9 Gastro-esophageal reflux disease without esophagitis; M19.90 Unspecified osteoarthritis, unspecified site; Z88.0 Allergy status to penicillin; W01.0XXA Fall on same level from slipping, tripping and stumbling without subsequent striking against object, initial encounter; Y93.89 Activity, other specified; Y92.89 Other specified places as the place of occurrence of the external cause; Y99.8 Other external cause status; Z20.828 Contact with and (suspected) exposure to other viral communicable diseases
CPT/HCPCS: 36415; 71045; 73502; 76000; 80048; 80053; 80061; 82607; 83540; 83550; 83735; 84100; 84443; 85014; 85018; 85025; 85610; 85730; 86850; 86900; 86901; 86920; 87426; 93005; 96374; 96376; 99285; A7015; C1713; C1887; J0690; J1100; J1650; J2270; J2370; J2405; J2704; J3010; J3490; J7030; J7040; J7120; P9016; 97110-GP; 97116-GP; 97530-GO; 97530-GP; 97535-GO; G0378; U0003-CS

== ENCOUNTER → 2020-06-07 | Outpatient (CLI) | payer BC ==
[2020-06-02 11:00] VITALS: BP 107/61
[~2020-06-07] MED LIST changes: +ACET325T9 PO; +ACET650S11 PR; +ALBU2.5V8 NEB; +DOCU-153 PO
--- NOTE | 2020-06-07 11:55 | RAD ---
Exam: VENOUS LOWER EXT BILATERAL Indication: Bilateral Leg Redness and swelling Technique: Color-flow and pulsed wave duplex ultrasound with compression of venous structures of the bilateral lower extremities. Comparison: None Available. Findings: Duplex ultrasound with compression of the deep venous structures of the bilateral lower extremities from the common femoral vein through the popliteal vein is negative for DVT. The posterior tibial and peroneal veins are segmentally visualized and patent where seen. Normal venous waveforms and augmentation are noted throughout. Impression: No evidence for DVT in the bilateral lower extremities. Electronically signed by: Singh Cheng MD (06/07/2020 11:52 AM) [id number]
--- NOTE | 2020-06-07 16:56 | RAD ---
PROCEDURE: KUB CLINICAL INDICATION / HISTORY: Reason: ABDOMEN DISTENSION / Spl. Instructions: / History: . TECHNIQUE: Single supine AP image of the abdomen was obtained. COMPARISON: None FINDINGS: The lung bases are clear. Post CABG changes and a moderate hiatal hernia are incidentally noted. Multiple gas-filled bowel loops are present. No definite free air identified. No organomegaly or pathologic calcifications are identified. No acute osseous abnormality. [Arthroplasty and right dynamic hip screw fixation are present. IMPRESSION: Gas-filled bowel loops, suggesting an ileus. No definite bowel perforation or findings of obstruction. Electronically signed by: Sharla Lobo MD (06/07/2020 4:53 PM) [id number]
== END | disposition home or self-care (01) ==
LOC: US 09:43
PROVIDERS: ATTEND Family Medicine
DX: R22.43 Localized swelling, mass and lump, lower limb, bilateral (principal); R14.0 Abdominal distension (gaseous)
CPT/HCPCS: 74018; 93970